=== PATIENT | male | born 1995 | race Two or more races ===

== ENCOUNTER 2020-07-13 17:03 | Outpatient (REF) | payer OTHER, SELFPAY | END 2020-07-13 17:04 | disposition home or self-care (01) | LOC: HO.LAB 17:03 | PROVIDERS: Visit Provider Internal Medicine | DX: Z20.828 Contact with and (suspected) exposure to other viral communicable diseases (principal) | CPT/HCPCS: 87635 ==

== ENCOUNTER 2020-12-25 17:55 | Emergency (ER) | payer SELFPAY ==
--- NOTE | ~2020-12-25 | XR_ITS ---
EXAMINATION: Left foot series. Left ankle series. CLINICAL INFORMATION: Inversion injury bruising COMPARISON: None TECHNIQUE: 3 views of the left foot. Additional 2 views of the left ankle FINDINGS: Left ankle: The bones joints and soft tissues are normal without fracture. Left foot: The bones joints soft tissues are normal. XR/XR foot LT 2V IMPRESSION: Normal x-ray series of the left ankle and foot
--- NOTE | ~2020-12-25 | XR_ITS ---
EXAMINATION: Left foot series. Left ankle series. CLINICAL INFORMATION: Inversion injury bruising COMPARISON: None TECHNIQUE: 3 views of the left foot. Additional 2 views of the left ankle FINDINGS: Left ankle: The bones joints and soft tissues are normal without fracture. Left foot: The bones joints soft tissues are normal. XR/XR ankle LT min 3V IMPRESSION: Normal x-ray series of the left ankle and foot
[2020-12-25 18:11] VITALS: BP 142/81; PULSE 76; RESP 18; TEMP 37; O2SAT 98; BMI 23.1
--- NOTE | 2020-12-25 18:34 | ED.LOWEXIN ---
HPI - Extremity Injury (Lower) General Chief Complaint: Extremity Injury, Lower Stated Complaint: knee injuey Source: patient Mode of arrival: ambulatory Limitations: no limitations History of Present Illness HPI Narrative: 25-year-old male with no significant past medical history presents with left foot and ankle pain. States that he rolled his ankle while taking out the garbage last night, thought that if he rested, iced and elevated his foot that the pain would resolve. He presents today with bruising across his foot, inability to flex and extend, and is having difficult time ambulating. He does not describe any other injury, denies fevers, chills, prodromal events prior to ankle injury, or any other concerning symptoms MD complaint: ankle injury and foot injury Onset (ago): day(s) (Yesterday) Type of Injury: inversion Place: home Severity: moderate Severity scale (1-10): 6 Relieving factors: cold therapy and immobilization Exacerbating factors: weight bearing, movement and palpation Associated symptoms: snap/pop sensation and able to partially bear weight Other symptoms: none Treatments prior to arrival: cold therapy and NSAIDS Related Data Previous Rx's Medication Instructions Recorded ibuprofen 600 mg PO Q6H PRN #60 tab 12/25/20 Allergies Allergy/AdvReac Type Severity Reaction Status Date / Time diphenhydramine Allergy Unknown UNKNOWN Unverified 06/02/20 17:47 [From [facility]] Review of Systems Review of Systems: Constitutional: No Fever, No Chills ENT/Mouth: No Ear Pain, No Hoarseness, No sore throat Eyes: No Eye Pain, No Swelling, No Redness, No Foreign Body Cardiovascular: No Chest Pain, No SOB Respiratory: No Cough, No Dyspnea Gastrointestinal: No Nausea, No Vomiting, No Diarrhea, No abdominal Pain Genitourinary: No Dysuria, No Hematuria Musculoskeletal: positive left ankle pain, No Myalgias, No Joint Swelling Skin: No Skin lacerations, No rash Neuro: No Weakness, No Numbness, No Paresthesias, No Loss of Consciousness, No Dizziness, No Headache Psych: No Anxiety/Panic, No Depression Heme/Lymph: no easy bruising, no Lymphadenopathy Endocrine: No Polyuria, No Polydipsia Yes all other systems are reviewed and are negative [facility] Past Medical History Attestation statement: The following information was validated with the patient. Source: old records reviewed Medical History No active medical problems Social History Social History Use of substances other than those prescribed or required for medical reasons: No Advance Directives: No Advance Directives Information Provided: Yes Physical Exam Vital Signs: Vital Signs: Last Vital Signs Temp 98.6 F 12/25/20 18:11 Pulse 76 12/25/20 18:11 Resp 18 12/25/20 18:11 BP 142/81 H 12/25/20 18:11 Pulse Ox 98 12/25/20 18:11 Body Mass Index 23.1 Appearance: Alert. Oriented X3. No acute distress. Eyes: Pupils equal, round and reactive to light. ENT: Pharynx normal. Neck: Normal inspection. Neck supple. CVS: Normal heart rate and rhythm. Pulses normal. Respiratory: No respiratory distress. Breath sounds normal. Abdomen: Soft and nontender. Skin: Skin warm and dry. Normal skin color. Normal skin turgor. Extremities: Left lower extremity, decreased range of motion to the ankle, decreased flexion, extension, unable to invert kapil, full range of motion to the toes, brisk capillary refill and pulses equal bilaterally. Significant bruising noted to the medial and lateral malleolar processes. Tender to palpation just below the processes bilaterally. Neuro: No motor deficit. No sensory deficit. Course Course Course Narrative: 25-year-old male presents with left ankle injury, bruising, and inability to bear weight fully. Plan of care is for x-ray. X-rays negative for fracture. Injuries and physical of presentation highly suspicious for sprain. Will place patient in an air splint, provide script for Motrin, and give crutches. Patient verbalized understanding of and agrees to plan of care discharge home. MDM - Extremity Injury (Lower) Differential Diagnosis Differential diagnosis: Likely ankle sprain and strain and ankle fracture Medical Records Attestation: I reviewed the patient's medical records. Imaging Data Left foot and ankle x-ray: Attestation: I personally reviewed and interpreted this imaging study as follows: Radiologist's impression: EXAMINATION: Left foot series. Left ankle series. CLINICAL INFORMATION: Inversion injury bruising COMPARISON: None TECHNIQUE: 3 views of the left foot. Additional 2 views of the left ankle FINDINGS: Left ankle: The bones joints and soft tissues are normal without fracture. Left foot: The bones joints soft tissues are normal. XR/XR ankle LT min 3V IMPRESSION: Normal x-ray series of the left ankle and foot Discharge Plan Discharge Clinical Impression: Ankle sprain and strain Patient Disposition: Home, Self-Care Instructions: Ankle Sprain (ED) Additional Instructions: You were evaluated for left ankle injury. X-rays are negative for fracture. Your physical exam is positive for ankle sprain. Please use the Aircast as needed. Use crutches as needed. Follow-up with primary care physician as needed. If pain persists over a week then follow-up with orthopedics. I provided phone number for you. Use Tylenol and Motrin as needed for pain management. I prescribed Motrin 600 mg. Thank you for choosing this emergency department for evaluation. Please follow-up with primary care physician as needed. Return to the emergency department for any new, concerning, or worsening symptoms. Prescriptions: New ibuprofen 600 mg tablet 600 mg PO Q6H PRN (Reason: pain) Qty: 60 RF: 0 Stand Alone Forms: Work/School Release Interventions: ED Discharge Assessment Last Done: 12/25/20 19:40 Discharge Date/Time: 12/25/20 19:44
== END 2020-12-25 19:44 | disposition home or self-care (01) ==
PROVIDERS: Emergency Provider Emergency Medicine
DX: S96.912A Strain of unspecified muscle and tendon at ankle and foot level, left foot, initial encounter (principal); S93.402A Sprain of unspecified ligament of left ankle, initial encounter; X50.1XXA Overexertion from prolonged static or awkward postures, initial encounter; Y93.E9 Activity, other interior property and clothing maintenance; Y92.014 Private driveway to single-family (private) house as the place of occurrence of the external cause; Y99.9 Unspecified external cause status
CPT/HCPCS: 73610; 73620; 99283; 99284

== ENCOUNTER 2021-05-03 23:16 | Emergency (ER) | payer SELFPAY ==
[2021-05-04 00:30] VITALS: BP 136/93; PULSE 59; RESP 18; TEMP 36.8; O2SAT 100; BMI 22.8
--- NOTE | 2021-05-04 00:34 | ED.GENADULT ---
HPI - General Adult General Chief complaint: General Medical Stated complaint: swollen fing Source: patient Mode of arrival: ambulatory Limitations: no limitations History of Present Illness HPI narrative: 25-year-old male presents with cellulitis to the left 4th dorsal aspect of the finger radiating down to his metacarpal joint. States that he feels that he was bitten by a spider earlier today. He does not report any fevers or chills, and does have some pain on range of motion. Onset (ago): day(s) (One) Location: left and upper extremity Radiation: non-radiation Severity: mild Severity scale (1-10): 4 Quality: burning and aching Pain Consistency: constant Exacerbating factors: movement Associated symptoms: denies other symptoms Treatments prior to arrival: heat therapy Related Data Previous Rx's Medication Instructions Recorded ibuprofen 600 mg tablet 600 mg PO Q6H PRN #60 tab 12/25/20 cephalexin 500 mg capsule 500 mg PO Q12H 7 Days #14 cap 05/04/21 doxycycline monohydrate 100 mg 100 mg PO BID 10 Days #20 cap 05/04/21 capsule Allergies Allergy/AdvReac Type Severity Reaction Status Date / Time diphenhydramine Allergy Unknown UNKNOWN Unverified 06/02/20 17:47 [From [facility]] Review of Systems Review of Systems: Constitutional: No Fever, No Chills ENT/Mouth: No Ear Pain, No Hoarseness, No sore throat Eyes: No Eye Pain, No Swelling, No Redness, No Foreign Body Cardiovascular: No Chest Pain, No SOB Respiratory: No Cough, No Dyspnea Gastrointestinal: No Nausea, No Vomiting, No Diarrhea, No abdominal Pain Genitourinary: No Dysuria, No Hematuria Musculoskeletal: positive left 4th finger pain, No Myalgias, No Joint Swelling Skin: Positive erythema to the left 4th finger, No Skin lacerations, No rash Neuro: No Weakness, No Numbness, No Paresthesias, No Loss of Consciousness, No Dizziness, No Headache Psych: No Anxiety/Panic, No Depression Heme/Lymph: no easy bruising, no Lymphadenopathy Endocrine: No Polyuria, No Polydipsia Yes all other systems are reviewed and are negative [facility] Past Medical History Attestation statement: The following information was validated with the patient. Source: old records reviewed Medical History No active medical problems Social History Social History Advance Directives: No Advance Directives Information Provided: Yes Physical Exam Vital Signs: Vital Signs: Last Vital Signs Temp 98.3 F 05/04/21 00:30 Pulse 59 05/04/21 00:30 Resp 18 05/04/21 00:30 BP 136/93 H 05/04/21 00:30 Pulse Ox 100 05/04/21 00:30 Body Mass Index 22.8 Appearance: Alert. Oriented X3. No acute distress. Eyes: Pupils equal, round and reactive to light. ENT: Pharynx normal. Neck: Normal inspection. Neck supple. CVS: Normal heart rate and rhythm. Pulses normal. Respiratory: No respiratory distress. Breath sounds normal. Abdomen: Soft and nontender. Skin: Skin warm and dry. Erythema consistent with cellulitis noted to the 4th left finger dorsal aspect between the PIP and MIP, small area of induration without fluctuance Extremities: No lower extremity edema. Moves all extremities against resistance. Brisk capillary refill to all digits on upper extremities. Neuro: No motor deficit. No sensory deficit. Cranial nerves 2-12 intact. Course Course Course Narrative: 25-year-old male presents with cellulitis to the 4th left finger. Will treat with doxy and Keflex as he suspects that this is a spider bite. He is asking for this to be incised and drained however he does not have any areas of fluctuance and the area of induration is approximately 0.5 cm. He was encouraged to continue to use warm compresses and to use antibiotics. Patient did understand rationale for not incising and draining this small wound in area of cellulitis. Patient verbalized understanding of and agrees plan of care discharge home. Medical Decision Making Differential Diagnosis Differential Diagnosis: Cellulitis Medical Records Medical records reviewed: Yes I reviewed the patient's medical records. Discharge Plan Discharge Clinical Impression: Cellulitis Patient Disposition: Home, Self-Care Instructions: Cellulitis (ED), Warm Compress or Soak (ED) Additional Instructions: You were evaluated for cellulitis to the left 4th finger. Please take doxycycline and Keflex as directed. These medications or antibiotics. Use a warm compress to help with swelling. Use Tylenol and Motrin as needed for pain management. Thank you for choosing this emergency department for evaluation. Please follow-up with primary care physician as needed. Return to the emergency department for any new, concerning, or worsening symptoms. Prescriptions: New doxycycline monohydrate 100 mg capsule 100 mg PO BID 10 Days Qty: 20 RF: 0 cephalexin 500 mg capsule 500 mg PO Q12H 7 Days Qty: 14 RF: 0 No Action ibuprofen 600 mg tablet 600 mg PO Q6H PRN (Reason: pain) Qty: 60 RF: 0 Interventions: ED Discharge Assessment Last Done: 05/04/21 01:01 Discharge Date/Time: 05/04/21 01:03
[2021-05-04] MEDS: cephALEXin 500 MG CAPSULE PO (00:52)
== END 2021-05-04 01:03 | disposition home or self-care (01) ==
PROVIDERS: Emergency Provider Emergency Medicine Emergency Medical Services
DX: L03.012 Cellulitis of left finger (principal)
CPT/HCPCS: 99283

== ENCOUNTER 2022-03-22 10:39 | Emergency (ER) | payer SELFPAY ==
[2022-03-22 11:16] VITALS: BP 130/90; PULSE 65; RESP 16; TEMP 35.9; O2SAT 99; BMI 22.2
[2022-03-22] MEDS: Lidocaine HCl 1 % MPF 5 ML VIAL INFILTRATI (12:41)
--- NOTE | 2022-03-22 12:46 | PC.NURSE ---
This RN bedside with MD to lidocaine administration and draining of abbess
--- NOTE | 2022-03-22 12:58 | ED_ITS ---
HPI - Dental/Oral General Chief complaint: Dental/Oral Stated complaint: infected tooth, R swollen jaw Time Seen by Provider: 03/22/22 12:12 Source: patient Mode of arrival: ambulatory Limitations: no limitations History of Present Illness HPI Narrative: 26-year-old male with right lower dental pain and an abscess in his mouth for the last 3 days. No fevers. Patient does not have a dentist. States that he has a large lump in his mouth, and he drained it yesterday, and a lot of pus came out. He is able to eat and drink, he can open his mouth all the way, no abdominal pain, no vomiting, no diarrhea, no nausea, no chest pain, no shortness of breath. MD Complaint: tooth pain Location: Tooth # (30) Teeth map: 1. decayed tooth 2. indurated area Onset (ago): day(s) (3) Duration: constant Severity: moderate Severity scale (1-10): 6 Relieving factors: nothing Exacerbating factors: chewing Context: history of dental caries and poor dental care Associated symptoms: gum swelling Treatment prior to arrival: none Related Data Previous Rx's Medication Instructions Recorded ibuprofen 600 mg tablet 600 mg PO Q6H PRN pain #60 tabs 12/25/20 cephalexin 500 mg capsule 500 mg PO Q12H 7 days #14 caps 05/04/21 doxycycline monohydrate 100 mg 100 mg PO BID 10 days #20 caps 05/04/21 capsule clindamycin HCl 300 mg capsule 300 mg PO Q6H 10 days #40 caps 03/22/22 ibuprofen 800 mg tablet 800 mg PO Q8H PRN pain #60 tabs 03/22/22 Allergies Allergy/AdvReac Type Severity Reaction Status Date / Time diphenhydramine Allergy Unknown UNKNOWN Unverified 06/02/20 17:47 [From [facility]] Review of Systems Constitutional: Constitutional: Denies body ache(s), Denies chills, Denies fatigue, Denies fever(s), Denies headache(s), Denies malaise and Denies weakness Eyes: Eyes: Denies diplopia ENT: Reports dental pain, Denies vertigo, Denies dizziness, Denies otalgia, Denies headache(s), Denies mouth pain, Denies post nasal drip, Denies sinus pain, Denies sinus pressure, Denies sore throat and Denies throat swelling Cardiovascular: Cardiovascular: Denies chest pain, Denies syncope, Denies leg edema, Denies lightheadedness, Denies Loss of Consciousness, Denies palpitations and Denies dyspnea Respiratory: Respiratory: Denies chest congestion, Denies cough and Denies dyspnea Gastrointestinal: Gastrointestinal: Denies abdominal pain, Denies hematochezia, Denies constipation, Denies diarrhea, Denies nausea and Denies vomiting Musculoskeletal: Musculoskeletal: Reports no additional musculoskeletal co mplaints Neurologic: Denies confusion, Denies vertigo, Denies dizziness, Denies syncope, Denies headache(s) and Denies weakness Psychiatric: Psychiatric: Denies anxiety, Denies confusion and Denies depression Endocrine: Endocrine: Denies fatigue and Denies palpitations Allergic/Immunologic: Allergic/Immunologic: Denies throat swelling PMFSH Past Medical History Medical History No active medical problems Social History Social History Advance Directives: No Advance Directives Information Provided: No Physical Exam Vital Signs: Vital Signs: Last Vital Signs Temp 96.7 F L 03/22/22 11:16 Pulse 65 03/22/22 11:16 Resp 16 03/22/22 11:16 BP 130/90 H 03/22/22 11:16 Pulse Ox 99 03/22/22 11:16 O2 Del Method 03/22/22 11:16 BMI result Body Mass Index 22.2 Const: General: No confusion Nutritional Appearance: well nourished Orientation/consciousness: No confusion Limitations: no limitations HEENT: Head: Yes normal to inspection, Yes normocephalic and Yes atraumatic Ears: hearing grossly normal bilaterally, external ears normal, TM's normal bilaterally and EAC's normal General nose exam: Normal external nose present Face and sinus: Yes sinuses nontender and Yes other (Mild swelling right jaw) Mouth: tongue normal, moist mucous membranes, no drooling, malodorous breath, no muffled voice and no trismus Teeth and gingiva: gingiva abnormal (abscess) with purulent discharge and poor dentition Teeth image: 1. decayed tooth 2. associated gingival abscess draining purulence Throat: Yes posterior oropharynx normal Eyes: Conjunctivae: conjunctivae normal Pupils: Equal, round and reactive pupils present EOM: EOMs intact bilaterally Neck: Neck: Yes full ROM, Yes no lymphadenopathy and Yes supple Resp: Effort & Inspection: normal respiratory effort and able to speak in complete sentences Auscultation: clear to auscultation bilaterally, no crackles, no rales, no rhonchi and no wheezes Cardio: Rate: regular rate Rhythm: regular rhythm Heart sounds: S1 n ormal heart sound present and S2 normal heart sound present GI: Inspection: Yes normal to inspection Palpation (GI): Soft to palpation, nontender, no guarding and not rigid Percussion: Yes normal to percussion Auscultation: normal bowel sounds Skin: General skin exam: no rashes or lesions noted Neuro: General: No confusion Cranial nerves: Yes Equal, round and reactive pupils present Extrem: General: Yes normal to inspection and Yes full ROM Psych: Appearance: grossly normal Affect: normal affect Attitude: cooperative Thought process: Normal thought process present Course Course Course Narrative: 26-year-old male with 3 days of dental pain in his right lower bottom jaw, with an associated abscess. Patient has not had fevers, he does not have a dentist. States that he had a big pocket of pus next to his right lower molar, and he drained the pus himself yesterday and got a lot of purulence out. On exam, patient has stable vitals, is afebrile, has mild right-sided facial swelling, no trismus, no muffled or hot potato voice, anterior neck is normal, patient has swelling on the gingival side of tooth number 30 I did incision and drainage, however no purulence came out. Discussed the role of imaging with Dr Pisano, who did not think patient needed imaging at this time. Clindamycin, ibuprofen, gave patient a list of dentists, gave return precautions a fever, not being able to open mouth, voice changes, return to emergency room. All patient's questions were answered, patient is safe for discharge home Procedures Abscess I/D Site: oral Side (if applicable): right Sedation/analgesia: none Local Anesthetic: lidocaine 1% Amount of anesthesia used (mL): 3 Technique: incised with blade Amount of fluid expressed (mL): 0 Sent for culture/gram staining?: No Irrigation: No Packing used?: none Complications: bleeding Discharge Plan Discharge Clinical Impression: Dental caries, Dental abscess Patient Disposition: Home, Self-Care Instructions: Dental Abscess (ED), Abscess Incision and Drainage (DC) Additional Instructions: Please call 1 of the dentists who is on the list that we gave you for follow-up appointment. Please start the antibiotics today, take them every 6 hours, until they are done. Please take ibuprofen for pain. Please return to the emergency room if you have fevers, vomiting, if you have a hard time opening her mouth, if the facial swelling is worse, or for any other new or concerning symptoms Prescriptions: New clindamycin HCl 300 mg capsule 300 mg PO Q6H 10 Days Qty: 40 0RF ibuprofen 800 mg tablet 800 mg PO Q8H PRN (Reason: pain) Qty: 60 0RF No Action doxycycline monohydrate 100 mg capsule 100 mg PO BID 10 Days Qty: 20 0RF cephalexin 500 mg capsule 500 mg PO Q12H 7 Days Qty: 14 0RF ibuprofen 600 mg tablet 600 mg PO Q6H PRN (Reason: pain) Qty: 60 0RF
== END 2022-03-22 13:27 | disposition home or self-care (01) ==
PROVIDERS: Emergency Provider Emergency Medicine
DX: K02.9 Dental caries, unspecified (principal); K04.7 Periapical abscess without sinus
CPT/HCPCS: 41800; 99283

== ENCOUNTER 2022-05-04 06:02 | Emergency (ER) | payer SELFPAY ==
[2022-05-04 06:12] VITALS: BP 129/84; PULSE 52; RESP 18; TEMP 36.8; O2SAT 100
[2022-05-04 06:19] VITALS: BP 129/84; PULSE 50; RESP 16; TEMP 36.8; O2SAT 99; BMI 22.9
[2022-05-04 06:38] VITALS: BP 135/85; PULSE 54; RESP 18; O2SAT 97
[2022-05-04 06:58] LABS: Appearance Urine Hazy; Color Urine Yellow; Glucose Urine UA Negative (Negative); Leukocyte Esterase Urine Trace (Negative); Nitrite Urine Negative (Negative); Urine Blood Negative (Negative); Urine Ketones Negative (Negative); Urine Protein Trace mg/dL (Neg-Trace)
--- NOTE | 2022-05-04 06:58 | ED_ITS ---
HPI - General Adult General Chief complaint: General Medical Stated complaint: painful urination Time Seen by Provider: 05/04/22 06:56 Source: patient Mode of arrival: ambulatory History of Present Illness HPI narrative: 26-year-old male presents with burning on urination as well as penile discharge for approximately 7 days and reports some scrotal sensitivity but denies any fever, chills and is currently sexually active without protection. Related Data Previous Rx's Medication Instructions Recorded ibuprofen 600 mg tablet 600 mg PO Q6H PRN pain #60 tabs 12/25/20 cephalexin 500 mg capsule 500 mg PO Q12H 7 days #14 caps 05/04/21 doxycycline monohydrate 100 mg 100 mg PO BID 10 days #20 caps 05/04/21 capsule clindamycin HCl 300 mg capsule 300 mg PO Q6H 10 days #40 caps 03/22/22 ibuprofen 800 mg tablet 800 mg PO Q8H PRN pain #60 tabs 03/22/22 doxycycline hyclate 100 mg tablet 100 mg PO BID 7 days #14 tabs 05/04/22 Allergies Allergy/AdvReac Type Severity Reaction Status Date / Time diphenhydramine Allergy Unknown UNKNOWN Unverified 06/02/20 17:47 [From [facility]] Review of Systems Review of Systems: Pertinent positives and negatives as stated in HPI 10 point review of systems is otherwise negative. PMFSH Past Medical History Source: nursing notes reviewed Medical History No active medical problems Social History Social History Advance Directives: No Physical Exam ED Vital Signs: Vital Signs - 24 hr 05/04/22 06:12 05/04/22 06:19 05/04/22 06:38 Temperature 98.2 F 98.2 F Pulse Rate 52 50 54 Respiratory Rate 18 16 18 Blood Pressure 129/84 129/84 135/85 Pulse Oximetry 100 99 97 Oxygen Delivery Method Room Air Room Air Room Air BMI result Body Mass Index 22.9 VITAL SIGNS: Reviewed. GENERAL: Well developed, well nourished, in no acute distress. HEAD: Normocephalic/atraumatic EYES: PERRLA, EOMI EARS: Ext canals without abnormality OROPHARYNX: no oral lesions noted, posterior pharynx clear LUNGS: Normal breath sounds. No adventitious sounds or accessory muscle use. SpO2<100> CARDIOVASCULAR: Regular rate and rhythm without noted murmurs ABDOMEN: Soft, non-tender, non-distended with bowel sounds. NEUROLOGIC: Alert and oriented x 4. Course Course Course Narrative: 26-year-old male with history and clinical presentation most consistent with STI, counseled patient regarding sexual activity over the next week as well as current treatment. Also counseled patient on following up his STI screening results and he is otherwise discharged home in stable condition after receiving empiric treatment for STI. Medical Decision Making Lab Data Labs: Lab Results 05/04/22 Range/Units 06:47 Urine Color Yellow Urine Appearance Hazy Urine pH 6.0 (5.0-8.0) Ur Specific [place] 1.020 (1.005-1.025) Urine Protein Trace (Neg-Trace) mg/dL Urine Glucose (UA) Negative (Negative) mg/dL Urine Ketones Negative (Negative) mg/dL Urine Blood Negative (Negative) Urine Nitrite Negative (Negative) Ur Leukocyte Esterase Trace H (Negative) Urine RBC 0-2 (0-2) /HPF Urine WBC 21-50 H (0-5) /HPF Ur Squamous Epith Cells 0-2 (0-2) /HPF Urine Bacteria Trace (None Seen) Hyaline Casts 0-2 (0-2) /LPF Discharge Plan Discharge Clinical Impression: Urethritis, Epididymitis Patient Disposition: Home, Self-Care Instructions: Epididymitis (ED), Urinary Tract Infection in Men (ED) Additional Instructions: 1. Recommend [id number] Tylenol/ibuprofen as needed for pain control. Drink plenty of water. 2. Complete the entire course of antibiotics as prescribed unless your results are negative for STI. 3. Do not engage in sexual activity for the next week and inform all sexual partners of your results should they be positive. Return to the ER for worsening symptoms. Prescriptions: New doxycycline hyclate 100 mg tablet 100 mg PO BID 7 Days Qty: 14 0RF No Action doxycycline monohydrate 100 mg capsule 100 mg PO BID 10 Days Qty: 20 0RF cephalexin 500 mg capsule 500 mg PO Q12H 7 Days Qty: 14 0RF ibuprofen 600 mg tablet 600 mg PO Q6H PRN (Reason: pain) Qty: 60 0RF clindamycin HCl 300 mg capsule 300 mg PO Q6H 10 Days Qty: 40 0RF ibuprofen 800 mg tablet 800 mg PO Q8H PRN (Reason: pain) Qty: 60 0RF
[2022-05-04 07:08] LABS: UACC Culture Trigger YES; WBC Urine 21-50 /HPF (0-5)
[2022-05-04 07:09] LABS: Bacteria Urine Trace (None Seen); RBC Urine 0-2 /HPF (0-2)
[2022-05-04 07:10] LABS: Hyaline Casts Urine 0-2 /LPF (0-2); Squamous Epithelial Cell Urine 0-2 /HPF (0-2)
[2022-05-04] MEDS: cefTRIAXone sodium 500 MG, Lidocaine HCl 1 % MPF 1 ML IM (07:29)
[2022-05-04 08:59] LABS: CT PCR DETECTED (Not Detect.); NG PCR NOT DETECTED (Not Detect.)
== END 2022-05-04 07:33 | disposition home or self-care (01) ==
PROVIDERS: Emergency Provider Student in an Organized Health Care Education/Training Program
DX: N45.1 Epididymitis (principal); N34.2 Other urethritis; R30.0 Dysuria; R36.9 Urethral discharge, unspecified; Z79.899 Other long term (current) drug therapy
CPT/HCPCS: 81001; 81003; 87086; 87491; 87591; 96372; 99283; 99284; J0696

== ENCOUNTER 2022-07-03 21:07 | Emergency (ER) | payer OTHER, SELFPAY ==
[2022-07-03 22:06] VITALS: BP 145/91; PULSE 73; RESP 16; TEMP 37; O2SAT 98; BMI 22.1
[2022-07-03 22:34] LABS: Appearance Urine Clear; Color Urine Yellow; Glucose Urine UA Negative (Negative); Leukocyte Esterase Urine Negative (Negative); Nitrite Urine Negative (Negative); PH 6.5 (5.0-9.0); Specific Gravity - Urine 1.025 (1.005-1.025); Urine Blood Negative (Negative); Urine Ketones Trace mg/dL (Negative); Urine Protein Negative (Neg-Trace)
--- NOTE | 2022-07-04 00:18 | ED.MALEGU ---
HPI - Male Genitourinary General Chief complaint: Urogenital-Male Stated complaint: STD retest Time Seen by Provider: 07/04/22 00:14 Source: patient Mode of arrival: ambulatory Limitations: no limitations History of Present Illness HPI Narrative: 26-year-old male who presents with several days of difficulty urinating, dysuria, discomfort at the tip of his penis, lower abdominal discomfort. Patient tells me in April he had chlamydia. He did take the antibiotics but continued to have unprotected sex with his girlfriend. He found out this week she tested positive for chlamydia. Then he started having symptoms prompting his ER visit today. Denies fever, back pain, vomiting, testicular pain or swelling Related Data Previous Rx's Medication Instructions Recorded ibuprofen 600 mg tablet 600 mg PO Q6H PRN pain #60 tabs 12/25/20 cephalexin 500 mg capsule 500 mg PO Q12H 7 days #14 caps 05/04/21 doxycycline monohydrate 100 mg 100 mg PO BID 10 days #20 caps 05/04/21 capsule clindamycin HCl 300 mg capsule 300 mg PO Q6H 10 days #40 caps 03/22/22 ibuprofen 800 mg tablet 800 mg PO Q8H PRN pain #60 tabs 03/22/22 doxycycline hyclate 100 mg tablet 100 mg PO BID 7 days #14 tabs 05/04/22 Allergies Allergy/AdvReac Type Severity Reaction Status Date / Time diphenhydramine Allergy Unknown UNKNOWN Unverified 06/02/20 17:47 [From HANNAH] Review of Systems Review of Systems: Yes all other systems are reviewed and are negative Constitutional: Constitutional: Reports no additional constitutional complaints, Denies body ache(s), Denies chills, Denies fever(s), Denies headache(s) and Denies weakness Eyes: Eyes: Reports no additional eye complaints and Denies change in vision ENT: Reports system reviewed and no additional complaints, except as documented, Denies dizziness, Denies headache(s), Denies nasal congestion, Denies nasal discharge and Denies neck pain Cardiovascular: Cardiovascular: Reports no additional cardiovascular complaints, Denies chest pain, Denies leg edema and Denies dyspnea Respiratory: Respiratory: Reports no additional respiratory complaints, Denies cough and Denies dyspnea Gastrointestinal: Gastrointestinal: Reports no additional gastrointestinal complaints, Reports abdominal pain, Denies diarrhea, Denies nausea and Denies vomiting Genitourinary: Genitourinary: Denies hematuria, Reports difficulty urinating, Reports dysuria, Denies flank pain, Denies penile discharge, Denies testicular mass, Denies testicular pain and Denies urinary incontinence Musculoskeletal: Musculoskeletal: Reports no additional musculoskeletal complaints, Denies back pain, Denies arthralgias, Denies joint swelling, Denies neck pain, Denies numbness and Denies tingling Integumentary/Breasts: Skin/Breast: Reports system reviewed and no additional complaints, except as docu and Denies rash Neurologic: Reports system reviewed and no additional complaints, except as documented, Denies Abnormal speech present, Denies dizziness, Denies headache(s), Denies numbness, Denies tingling and Denies weakness PMFSH Past Medical History Attestation statement: The following information was validated with the patient. Source: old records reviewed and nursing notes reviewed Medical History No active medical problems Social History Social History Advance Directives: No Advance Directives Information Provided: Yes Physical Exam Vital Signs: Vital Signs: Last Vital Signs Temp 98.6 F 07/03/22 22:06 Pulse 73 07/03/22 22:06 Resp 16 07/03/22 22:06 BP 145/91 H 07/03/22 22:06 Pulse Ox 98 07/03/22 22:06 O2 Del Method 07/03/22 22:06 BMI result Body Mass Index 22.1 Const: General: cooperative, healthy appearing, comfortable and no acute distress Orientation/consciousness: patient oriented x3 Limitations: no limitations HEENT: Head: Yes normal to inspection Ears: hearing grossly normal bilaterally General nose exam: Normal external nose present Face and sinus: Yes normal facial exam Mouth: Normal oral and palatal mucosa present Throat: Yes posterior oropharynx normal Eyes: General: appearance normal, both eyes and all related structures Pupils: Equal, round and reactive pupils present Neck: Neck: Yes normal visual inspection Chest: Chest palpation & inspection: normal inspection of the chest Resp: Effort & Inspection: normal respiratory effort Auscultation: clear to auscultation bilaterally Cardio: Rate: regular rate Rhythm: regular rhythm Peripheral pulses: Peripheral pulses 2+ throughout GI: Inspection: Yes normal to inspection Palpation (GI): Soft to palpation and nontender Auscultation: normal bowel sounds : Other: Deferred exam Back/Spine/Pelvis: Thoracic/Lumbar Spine: thoracic and lumbar spine normal to inspection Skin: General skin exam: no rashes or lesions noted Neuro: General: patient oriented x3, no focal motor deficits and normal sensation to monofilament Cranial nerves: Yes Equal, round and reactive pupils present Cognition (Neuro): normal cognition Speech: No Abnormal speech present Gait exam (Neuro): Normal gait present Motor exam (neuro): 5/5 motor strength present throughout Extrem: General: Yes normal to inspection and Yes no pedal edema MDM - Male Genitourinary MDM Narrative Medical decision making narrative: 26-year-old male here with symptoms of difficulty urinating, dysuria, lower abdominal discomfort for several days after finding out his girlfriend is positive for chlamydia. UA shows no signs of UTI. Testing for gonorrhea and chlamydia were sent. Patient will be treated prophylactically with ceftriaxone 500 mg IM and sent home with doxycycline Reviewed worrisome signs and symptoms of when to return to the emergency room. Comfortable plan for discharge home Differential Diagnosis Differential diagnosis: Likely urinary tract infection and urethritis Medical Records Attestation: I reviewed the patient's medical records. Lab Data Attestation: I reviewed the patient's lab results. Labs: Lab Results 07/03/22 Range/Units 22:27 Urine Color Yellow Urine Appearance Clear Urine pH 6.5 (5.0-9.0) Ur Specific [place] 1.025 (1.005-1.025) Urine Protein Negative (Neg-Trace) mg/dL Urine Glucose (UA) Negative (Negative) mg/dL Urine Ketones Trace (Negative) mg/dL Urine Blood Negative (Negative) Urine Nitrite Negative (Negative) Ur Leukocyte Esterase Negative (Negative) Discharge Plan Discharge Clinical Impression: Concern about STD in male without diagnosis Patient Disposition: Home, Self-Care Instructions: Sexually Transmitted Diseases (ED) Additional Instructions: We will call you if here test are positive. Avoid unprotected sex for 7 days Prescriptions: No Action doxycycline monohydrate 100 mg capsule 100 mg PO BID 10 Days Qty: 20 0RF cephalexin 500 mg capsule 500 mg PO Q12H 7 Days Qty: 14 0RF ibuprofen 600 mg tablet 600 mg PO Q6H PRN (Reason: pain) Qty: 60 0RF clindamycin HCl 300 mg capsule 300 mg PO Q6H 10 Days Qty: 40 0RF ibuprofen 800 mg tablet 800 mg PO Q8H PRN (Reason: pain) Qty: 60 0RF doxycycline hyclate 100 mg tablet 100 mg PO BID 7 Days Qty: 14 0RF Referrals: Physician,None [Primary Care Provider] -
[2022-07-04] MEDS: cefTRIAXone sodium 500 MG, Lidocaine HCl 1 % MPF 1 ML IM (00:35)
[2022-07-04 05:30] LABS: CT PCR NOT DETECTED (Not Detect.); NG PCR NOT DETECTED (Not Detect.)
== END 2022-07-04 00:41 | disposition home or self-care (01) ==
PROVIDERS: Emergency Provider Internal Medicine
DX: R10.30 Lower abdominal pain, unspecified (principal); Z20.2 Contact with and (suspected) exposure to infections with a predominantly sexual mode of transmission
CPT/HCPCS: 81003; 87491; 87591; 96372; 99282; 99284; J0696

== ENCOUNTER 2022-08-21 12:18 | Emergency (ER) | payer SELFPAY ==
[2022-08-21 12:31] VITALS: BP 143/92; PULSE 69; RESP 14; TEMP 36.1; O2SAT 99; BMI 22.7
--- NOTE | 2022-08-21 12:31 | ED_ITS ---
HPI - General Adult General Chief complaint: Urogenital-Male <Yoli Nicholson MD - Last Filed: 08/21/22 12:35> Stated complaint: STD check <Yoli Nicholson MD - Last Filed: 08/21/22 12:35> Time Seen by Provider: 08/21/22 15:22 <Yoli Nicholson MD - Last Filed: 08/21/22 12:35> Source: patient <DUC Craig - Last Filed: 08/21/22 15:46> Mode of arrival: ambulatory <DUC Craig - Last Filed: 08/21/22 15:46> History of Present Illness HPI narrative: 26-year-old male with a past medical history of STIs presenting to the ED complaining of continued penile irritation/erythema. Reports girlfriend tested positive for chlamydia a few months ago, patient states he presented to the ED for testing and was negative, however reports continued symptoms. Also reports urinary hesitancy. Denies fever, abdominal pain, flank pain, dysuria, hematuria, penile discharge, penile lesions/ulcers <DUC Craig - Last Filed: 08/21/22 15:46> Onset (ago): month(s) <DUC Craig - Last Filed: 08/21/22 15:46> Related Data Home medications: Previous Rx's Medication Instructions Recorded ibuprofen 600 mg tablet 600 mg PO Q6H PRN pain #60 tabs 12/25/20 cephalexin 500 mg capsule 500 mg PO Q12H 7 days #14 caps 05/04/21 doxycycline monohydrate 100 mg 100 mg PO BID 10 days #20 caps 05/04/21 capsule clindamycin HCl 300 mg capsule 300 mg PO Q6H 10 days #40 caps 03/22/22 ibuprofen 800 mg tablet 800 mg PO Q8H PRN pain #60 tabs 03/22/22 doxycycline hyclate 100 mg tablet 100 mg PO BID 7 days #14 tabs 05/04/22 <Yloi Nicholson MD - Last Filed: 08/21/22 12:35> Allergies/adverse reactions: Allergies Allergy/AdvReac Type Severity Reaction Status Date / Time diphenhydramine Allergy Unknown UNKNOWN Unverified 06/02/20 17:47 [From BENADRYL] <Yoli Nicholson MD - Last Filed: 08/21/22 12:35> Review of Systems Review of Systems: Constitutional: No Fever, No Chills, No Fatigue, No Malaise ENT/Mouth: No Ear Pain, No sore throat, No Rhinorrhea, No Swallowing Difficulty Eyes: No Eye Pain, No Swelling, No Redness, No Vision Changes Cardiovascular: No Chest Pain, No SOB, No Palpitations Respiratory: No Cough, No Sputum Gastrointestinal: No Nausea, No Vomiting, No Diarrhea, No Abdominal pain Genitourinary: No irregular bleeding, No Dysuria, No Urinary Frequency, No Hematuria, No Urinary Incontinence/retention, No Urgency, No Flank Pain, No Urinary Flow Changes, + Hesitancy, +penile irritation Musculoskeletal: No joint pain, No Myalgias, No Joint Swelling Skin: No Skin Lesions, No rash Neuro: No Weakness, No Headache <DUC Craig - Last Filed: 08/21/22 15:46> Yes all other systems are reviewed and are negative <DUC Craig - Last Filed: 08/21/22 15:46> Constitutional: Constitutional: Reports as per HPI <DUC Craig - Last Filed: 08/21/22 15:46> [facility] Past Medical History Attestation statement: The following information was validated with the patient. <DUC Craig - Last Filed: 08/21/22 15:46> Medical History: Medical History No active medical problems <Yoli Nicholson MD - Last Filed: 08/21/22 12:35> Social History Social History: Social History Advance Directives: No Advance Directives Information Provided: No <Yoli Nicholson MD - Last Filed: 08/21/22 12:35> Physical Exam ED Vital Signs: Vital Signs - 24 hr 08/21/22 12:31 Temperature 97 F Pulse Rate 69 Respiratory Rate 14 Blood Pressure 143/92 H Pulse Oximetry 99 Oxygen Delivery Method Room Air BMI result Body Mass Index 22.7 <Yoli Nicholson MD - Last Filed: 08/21/22 12:35> Vital Signs - 24 hr 08/21/22 12:31 Temperature 97 F Pulse Rate 69 Respiratory Rate 14 Blood Pressure 143/92 H Pulse Oximetry 99 Oxygen Delivery Method Room Air BMI result Body Mass Index 22.7 <DUC Craig - Last Filed: 08/21/22 15:46> Const General: cooperative, healthy appearing, comfortable and no acute distress <DUC Craig - Last Filed: 08/21/22 15:46> Orientation/consciousness: patient oriented x3 <DUC Craig - Last Filed: 08/21/22 15:46> Limitations: no limitations <DUC Craig - Last Filed: 08/21/22 15:46> HENMT Head: Yes normal to inspection and Yes atraumatic <DUC Craig - Last Filed: 08/21/22 15:46> Ears: hearing grossly normal bilaterally <DUC Craig - Last Filed: 08/21/22 15:46> General nose exam: Normal external nose present <DUC Craig - Last Filed: 08/21/22 15:46> Face and sinus: Yes normal facial exam <DUC Craig - Last Filed: 08/21/22 15:46> Eyes General: appearance normal, both eyes and all related structures <DUC Craig - Last Filed: 08/21/22 15:46> EOM: EOMs intact bilaterally <DUC Craig - Last Filed: 08/21/22 15:46> Neck Neck: Yes normal visual inspection and Yes no meningeal signs <DUC Craig - Last Filed: 08/21/22 15:46> Resp Effort & Inspection: normal respiratory effort, not labored and no respiratory distress <DUC Craig - Last Filed: 08/21/22 15:46> Cardio Rate: regular rate <DUC Craig - Last Filed: 08/21/22 15:46> Heart sounds: S1 normal heart sound present and S2 normal heart sound present <DUC Craig - Last Filed: 08/21/22 15:46> GI Inspection: Yes normal to inspection <DUC Craig - Last Filed: 08/21/22 15:46> Other: deferred <DUC Craig - Last Filed: 08/21/22 15:46> Skin Wounds: no wounds <DUC Craig - Last Filed: 08/21/22 15:46> Neuro General: patient oriented x3, gait normal, tone normal and no meningeal signs <DUC Craig Last Filed: 08/21/22 15:46> Gait exam (Neuro): Normal gait present <DUC Craig Last Filed: 08/21/22 15:46> Extrem General: Yes normal to inspection <DUC Craig Last Filed: 08/21/22 15:46> Course Course Course Narrative: 26M penis tip redness. unprotected sex. VS Reviewed GEN: NAD EARS: wnl THROAT: wnl LUNGS: CTAB CVS: RRR ABD: NT/ND <Yoli Nicholson MD - Last Filed: 08/21/22 12:35> 26M penis tip redness. unprotected sex. VS Reviewed GEN: NAD EARS: wnl THROAT: wnl LUNGS: CTAB CVS: RRR ABD: NT/ND -1535--gonorrhea/chlamydia negative. UA not infected > results discussed with patient. exam deferred, recommended patient follow- up with [facility] for further STI testing for id recommended the patient refrain from any sexual contact until he is fully evaluated/tested for other STI's <DUC Craig - Last Filed: 08/21/22 15:46> Medical Decision Making Medical Decision Making MDM Narrative: 26-year-old male with a past medical history of STIs presenting to the ED complaining of continued penile irritation/erythema. On exam vital signs stable, NAD, nontoxic appearing, patient deferred exam. CT NG and UA ordered in triage and both negative/unremarkable. Concern for other STIs vs ?Possible balanitis. Low suspicion for appendicitis/diverticulitis, testicular torsion, renal stone/pyelo Recommended patient follow-up with his PCP/go to [facility] for further eval <DUC Craig Last Filed: 08/21/22 15:46> Differential Diagnoses: Differential diagnosis Differential Diagnosis: The differential diagnosis associated with the patient?s presentation includes: as above <DUC Craig - Last Filed: 08/21/22 15:46> Non-ED record review: Review of External (Non-ED) Record External record reviewed:: Inpatient record, Office record, Outpatient record and Prior outpatient labs <DUC Craig - Last Filed: 08/21/22 15:46> Tests considered but not performed: Tests Considered But Not Performed (other sti testing however patient deferred exam) The following testing was considered but ultimately not selected after discussion with patient/family. <DUC Craig - Last Filed: 08/21/22 15:46> Prescription medication was considered but ultimately not given after discussion with patient/family. (e.g., pain medication, antiviral, antibiotic): Prescriptions considered but not given I considered prescription management with: Antiviral and Antibiotic <DUC Craig - Last Filed: 08/21/22 15:46> Discharge Plan Discharge Clinical Impression: Penile irritation <Yoli Nicholson MD - Last Filed: 08/21/22 12:35> Patient Disposition: Home, Self-Care <Yoli Nicholson MD - Last Filed: 08/21/22 12:35> Instructions: Sexually Transmitted Diseases (ED) <Yoli Nicholson MD - Last Filed: 08/21/22 12:35> Additional Instructions: You tested negative for gonorrhea and chlamydia today in the emergency department. Her urine is not infected. Please refrain from any sexual contact until you are fully tested for other STIs. We recommend you go to [facility] for further testing If her symptoms persist or worsen, you fever, your unable to urinate, abdominal pain please return to the ED <Yoli Nicholson MD - Last Filed: 08/21/22 12:35> Prescriptions: No Action doxycycline monohydrate 100 mg capsule 100 mg PO BID 10 Days Qty: 20 0RF cephalexin 500 mg capsule 500 mg PO Q12H 7 Days Qty: 14 0RF ibuprofen 600 mg tablet 600 mg PO Q6H PRN (Reason: pain) Qty: 60 0RF clindamycin HCl 300 mg capsule 300 mg PO Q6H 10 Days Qty: 40 0RF ibuprofen 800 mg tablet 800 mg PO Q8H PRN (Reason: pain) Qty: 60 0RF doxycycline hyclate 100 mg tablet 100 mg PO BID 7 Days Qty: 14 0RF <Yoli Nicholson MD - Last Filed: 08/21/22 12:35> Referrals: Physician,None [Primary Care Provider] - <Yoli Nicholson MD - Last Filed: 08/21/22 12:35> Discharge Date/Time: 08/21/22 15:42 <Yoli Nicholson MD - Last Filed: 08/21/22 12:35>
[2022-08-21 13:20] LABS: Appearance Urine Clear; Color Urine Yellow; Glucose Urine UA Negative (Negative); Leukocyte Esterase Urine Negative (Negative); Nitrite Urine Negative (Negative); PH 6.5 (5.0-9.0); Specific Gravity - Urine 1.025 (1.005-1.025); Urine Blood Negative (Negative); Urine Ketones Negative (Negative); Urine Protein Negative (Neg-Trace)
[2022-08-21 14:47] LABS: CT PCR NOT DETECTED (Not Detect.); NG PCR NOT DETECTED (Not Detect.)
== END 2022-08-21 15:42 | disposition home or self-care (01) ==
PROVIDERS: Student in an Organized Health Care Education/Training Program; Emergency Provider Emergency Medicine
DX: N48.89 Other specified disorders of penis (principal); Z20.2 Contact with and (suspected) exposure to infections with a predominantly sexual mode of transmission; Z79.899 Other long term (current) drug therapy
CPT/HCPCS: 81003; 87491; 87591; 99282; 99283

== ENCOUNTER 2023-03-05 09:08 | Emergency (ER) | payer SELFPAY ==
[2023-03-05 09:35] VITALS: BP 145/97; PULSE 65; RESP 18; TEMP 36.5; O2SAT 100; BMI 22.6
--- NOTE | 2023-03-05 10:52 | ED_ITS ---
HPI - General Adult General Chief complaint: Back Pain/Injury Stated complaint: muscle spasm in back and neck Time Seen by Provider: 03/05/23 09:41 Source: patient and RN notes reviewed Mode of arrival: ambulatory Limitations: no limitations History of Present Illness HPI narrative: This is a 27-year-old male presenting to the emergency department for evaluation of left-sided neck pain x4 days. Patient reports that he accidentally stepped wrong 4 days ago and has had pain and difficulty moving his neck since. Patient reports that he is trying gentle massage and range of motion without any relief. Denies history of similar symptoms in the past. Denies any fevers, chills, headaches, blurred vision, chest pain, shortness of breath, cough, abdominal pain, nausea, vomiting, or diarrhea. Denies any other complaints or concerns at this time. MD complaint: Neck spasm Onset (ago): day(s) Radiation: neck Severity: moderate Quality: aching Pain Consistency: constant Relieving factors: immobilization Exacerbating factors: none Associated symptoms: denies other symptoms Treatments prior to arrival: none Related Data Previous Rx's Medication Instructions Recorded ibuprofen 600 mg tablet 600 mg PO Q6H PRN pain #60 tabs 12/25/20 cephalexin 500 mg capsule 500 mg PO Q12H 7 days #14 caps 05/04/21 doxycycline monohydrate 100 mg 100 mg PO BID 10 days #20 caps 05/04/21 capsule clindamycin HCl 300 mg capsule 300 mg PO Q6H 10 days #40 caps 03/22/22 ibuprofen 800 mg tablet 800 mg PO Q8H PRN pain #60 tabs 03/22/22 doxycycline hyclate 100 mg tablet 100 mg PO BID 7 days #14 tabs 05/04/22 cyclobenzaprine 5 mg tablet 5 mg PO BEDTIME PRN muscle spasm 03/05/23 #5 tabs ibuprofen 600 mg tablet 600 mg PO Q6H PRN pain #20 tabs 03/05/23 prednisone 20 mg tablet 40 mg PO DAILY 5 days #10 tabs 03/05/23 Allergies Allergy/AdvReac Type Severity Reaction Status Date / Time diphenhydramine Allergy Unknown UNKNOWN Verified 03/05/23 09:38 [From BENCRISTHIANL] Review of Systems Review of Systems: Constitutional: No Weight loss, No Fever, No Chills ENT/Mouth: No Ear Pain, No Nasal Congestion, No Sinus Pain, No Hoarseness, No sore throat, No Rhinorrhea, No Swallowing Difficulty Cardiovascular: No Chest Pain, No SOB Respiratory: No Cough, No Sputum, No Wheezing Gastrointestinal: No Nausea, No Vomiting, No Diarrhea, No Constipation, No Abdominal pain Genitourinary: No Dysuria, No Urinary Frequency, No Hematuria, No Urinary Incontinence/retention, No Urgency, No Flank Pain Musculoskeletal: No joint pain, No Myalgias, No Joint Swelling Skin: No Skin Lesions, No rash Neuro: No Weakness, No Numbness, No Paresthesias [facility] Past Medical History Medical History No active medical problems Social History Social History Advance Directives: No Advance Directives Information Provided: No Physical Exam ED Vital Signs: Vital Signs - 24 hr 03/05/23 09:35 Temperature 97.7 F Pulse Rate 65 Respiratory Rate 18 Blood Pressure 145/97 H Pulse Oximetry 100 Oxygen Delivery Method Room Air BMI result Body Mass Index 22.6 General: Awake, alert, and oriented X3. No acute distress. HEENT: Normal inspection CVS: Normal heart rate and rhythm. Pulses normal. Neck: Cervical midline spine is nontender. Tenderness to palpation along the left cervical paraspinous muscles into the left trapezius with palpable spasm. No nuchal rigidity. Able to rotate neck and extended neck without difficulty, able to flex neck with some pain along the left trapezius. Respiratory: No respiratory distress Skin: Warm, dry, no rashes noted to exposed skin. Normal skin color. Normal skin turgor. Extremities: Normal inspection Neuro: Oriented X 3. No motor deficit. No sensory deficit. Medical Decision Making Medical Decision Making MDM Narrative: 27-year-old male presenting to the emergency department for evaluation of left- sided neck pain and muscle spasm x4 days. Blood pressure mildly elevated at 140 5/97, likely due to pain. Patient has no nuchal rigidity and good range of motion of the neck. Palpable muscle spasm along the left trapezius. Patient's symptoms consistent with left trapezial muscle spasm. Educated the importance of gentle motion and stretching, will treat with Toradol 30 mg IM, ibuprofen, prednisone, and muscle relaxers. Patient has no primary care physician who he can follow up with, given a list so he can call today to make an appointment for follow-up. Patient given red flag return precautions. Patient understands and agrees with plan. Patient stable for discharge. Differential Diagnosis Differential Diagnoses: The differential diagnosis associated with the presentation includes Left trapezial muscle spasm, muscle strain, torticollis, meningitis-unlikely Discharge Plan Discharge Clinical Impression: Trapezius muscle spasm Patient Disposition: Home, Self-Care Instructions: Muscle Spasm (ED) Additional Instructions: Your symptoms are consistent with a muscle spasm. Heat may help with your symptoms. Gentle stretching and massage may also help. Take prescribed medication as directed. If any new or worsening symptoms occur please return for re-evaluation. Have given you a list of primary care physicians, call today to make an appointment. Prescriptions: New cyclobenzaprine 5 mg tablet 5 mg PO BEDTIME PRN (Reason: muscle spasm) Qty: 5 0RF prednisone 20 mg tablet 40 mg PO DAILY 5 Days Qty: 10 0RF ibuprofen 600 mg tablet 600 mg PO Q6H PRN (Reason: pain) Qty: 20 0RF No Action doxycycline monohydrate 100 mg capsule 100 mg PO BID 10 Days Qty: 20 0RF cephalexin 500 mg capsule 500 mg PO Q12H 7 Days Qty: 14 0RF ibuprofen 600 mg tablet 600 mg PO Q6H PRN (Reason: pain) Qty: 60 0RF clindamycin HCl 300 mg capsule 300 mg PO Q6H 10 Days Qty: 40 0RF ibuprofen 800 mg tablet 800 mg PO Q8H PRN (Reason: pain) Qty: 60 0RF doxycycline hyclate 100 mg tablet 100 mg PO BID 7 Days Qty: 14 0RF
[2023-03-05] MEDS: Ketorolac Tromethamine 30 MG/ML VIAL IM (10:59)
== END 2023-03-05 11:07 | disposition home or self-care (01) ==
PROVIDERS: Emergency Provider Emergency Medicine
DX: M54.50 Low back pain, unspecified (principal); M54.2 Cervicalgia; M62.838 Other muscle spasm; Z79.899 Other long term (current) drug therapy
CPT/HCPCS: 96372; 99284; J1885

== ENCOUNTER 2023-04-19 01:57 | Emergency (ER) | payer SELFPAY ==
[2023-04-19 02:07] VITALS: BP 137/88; PULSE 89; RESP 20; TEMP 36.7; O2SAT 98; BMI 23.1
--- NOTE | 2023-04-19 02:54 | ED_ITS ---
HPI - General Adult General Chief complaint: Allergic Reaction Stated complaint: Cellulitis in mouth per pt Time Seen by Provider: 04/19/23 02:41 Source: patient Mode of arrival: ambulatory Limitations: no limitations History of Present Illness HPI narrative: 27-year-old male came in with concern of mouth infection, patient has a recent tooth extraction now he feels pain in his gum around the extracted tooth, noah diaz stated that his significant other also been having a mouth infection and she is taking an antibiotic. Patient declined any fever or chills. Related Data Previous Rx's Medication Instructions Recorded ibuprofen 600 mg tablet 600 mg PO Q6H PRN pain #60 tabs 12/25/20 cephalexin 500 mg capsule 500 mg PO Q12H 7 days #14 caps 05/04/21 doxycycline monohydrate 100 mg 100 mg PO BID 10 days #20 caps 05/04/21 capsule clindamycin HCl 300 mg capsule 300 mg PO Q6H 10 days #40 caps 03/22/22 ibuprofen 800 mg tablet 800 mg PO Q8H PRN pain #60 tabs 03/22/22 doxycycline hyclate 100 mg tablet 100 mg PO BID 7 days #14 tabs 05/04/22 cyclobenzaprine 5 mg tablet 5 mg PO BEDTIME PRN muscle spasm 03/05/23 #5 tabs ibuprofen 600 mg tablet 600 mg PO Q6H PRN pain #20 tabs 03/05/23 prednisone 20 mg tablet 40 mg PO DAILY 5 days #10 tabs 03/05/23 amoxicillin 500 mg tablet 500 mg PO BID #14 tabs 04/19/23 Allergies Allergy/AdvReac Type Severity Reaction Status Date / Time diphenhydramine Allergy Unknown UNKNOWN Verified 04/19/23 02:11 [From [facility]] Review of Systems Review of Systems: All other systems are reviewed and are negative Constitutional: Reports as per HPI and Reports no additional constitutional complaints Eyes: Reports as per HPI and Reports no additional eye complaints Reports system reviewed and no additional complaints, except as documented Cardiovascular: Reports as per HPI and Reports no additional cardiovascular complaints Respiratory: Reports as per HPI and Reports no additional respiratory complaints Gastrointestinal: Reports as per HPI and Reports no additional gastrointestinal complaints Genitourinary: Reports no additional female genitourinary complaints Musculoskeletal: Reports no additional musculoskeletal complaints Skin/Breast: Reports system reviewed and no additional complaints, except as docu Psychiatric: Reports no additional psychiatric complaints Endocrine: Reports no additional endocrine complaints Hematologic/Lymphatic: Reports no additional hematologic/lymphatic complaints Allergic/Immunologic: Reports no additional allergic/immunologic complaints Reports system reviewed and no additional complaints, except as documented and Reports Abnormal speech present [facility] Past Medical History Medical History No active medical problems Social History Social History Advance Directives: No Advance Directives Information Provided: Yes Physical Exam ED Vital Signs: Vital Signs - 24 hr 04/19/23 02:07 Temperature 98.0 F Pulse Rate 89 Respiratory Rate 20 Blood Pressure 137/88 Pulse Oximetry 98 Oxygen Delivery Method Room Air BMI result Body Mass Index 23.1 Vital signs have been reviewed as appeared to be correct. Blood pressure normal. Heart rate normal. Respiration rate normal. Temperature normal. Oxygen saturation normal. Appearance: Alert. Oriented X3. No acute distress. Mouth: Gum tenderness and swelling around the 2nd molar tooth that is recently extracted, no fluctuation, no abscess. Head: Normal external exam. Normocephalic. Atraumatic. No Harmon signs noted. No raccoon eyes noted Eyes: PERRLA. EOMI. Conjunctiva and sclera normal. Eyelids normal. ENT: TM's Normal. Pharynx normal. Uvula midline. Moist mucous membranes. No trismus noted. No drooling noted. No muffled voice noted. Neck: Normal inspection. Neck supple. FROM. No adenopathy. Thyroid Normal. No meningeal signs. No neck mass noted. CVS: Normal heart rate and rhythm. Heart sound normal. No murmurs noted. Pulses normal throughout. Respiratory: No respiratory distress. Painless inspiration. Breath sounds normal. No wheezes/rales/rhonchi noted. Chest nontender. No accessory muscle usage noted or decreased air movement noted. Abdomen: Soft and nontender. Bowel sounds normal in all 4 quadrants. No distention noted. No organomegaly noted. No visible injury noted. Back: No CVA tenderness. Full range of motion noted. Skin: Skin warm and dry. Normal skin color. Normal skin turgor. No rashes/lesions/lacerations noted. Extremities: No lower extremity edema. Extremities exhibit normal range of motion. Extremities nontender. Neuro: Oriented X 3. Cranial nerve exam: II-XII are grossly intact No motor deficit. No sensory deficit. Reflexes normal. Course Course Course Narrative: Recent tooth extraction now complaining of gum pain and swelling, significant other also been treated for gingivitis. Will start the patient on amoxicillin and follow up with dentist. Medical Decision Making Differential Diagnosis Differential Diagnoses: The differential diagnosis associated with the presentation includes (Dental infection, gingivitis, dental abscess.) Admission/Observation Consideration of admission/observation: Escalation of care including admission/observation considered Discharge Plan Discharge Clinical Impression: Infection, Dental infection Patient Disposition: Home, Self-Care Instructions: Gingivitis (ED) Prescriptions: New amoxicillin 500 mg tablet 500 mg PO BID Qty: 14 0RF No Action doxycycline monohydrate 100 mg capsule 100 mg PO BID 10 Days Qty: 20 0RF cephalexin 500 mg capsule 500 mg PO Q12H 7 Days Qty: 14 0RF ibuprofen 600 mg tablet 600 mg PO Q6H PRN (Reason: pain) Qty: 60 0RF clindamycin HCl 300 mg capsule 300 mg PO Q6H 10 Days Qty: 40 0RF ibuprofen 800 mg tablet 800 mg PO Q8H PRN (Reason: pain) Qty: 60 0RF doxycycline hyclate 100 mg tablet 100 mg PO BID 7 Days Qty: 14 0RF cyclobenzaprine 5 mg tablet 5 mg PO BEDTIME PRN (Reason: muscle spasm) Qty: 5 0RF prednisone 20 mg tablet 40 mg PO DAILY 5 Days Qty: 10 0RF ibuprofen 600 mg tablet 600 mg PO Q6H PRN (Reason: pain) Qty: 20 0RF
== END 2023-04-19 03:18 | disposition home or self-care (01) ==
PROVIDERS: Emergency Provider Emergency Medicine
DX: K04.7 Periapical abscess without sinus (principal); K08.89 Other specified disorders of teeth and supporting structures; Z79.899 Other long term (current) drug therapy
CPT/HCPCS: 99284

== ENCOUNTER 2023-07-20 13:57 | Emergency (ER) | payer MEDICAID, SELFPAY ==
[2023-07-20 14:02] VITALS: BP 140/86; PULSE 72; RESP 18; TEMP 36.7; O2SAT 100; BMI 23.5
--- NOTE | 2023-07-20 14:04 | ED_ITS ---
HPI - Dental/Oral General Chief complaint: Dental/Oral Stated complaint: mouth swelling History of Present Illness HPI Narrative: Patient complains of worsening pain and swelling in broken tooth on the left lower side of his mouth, he has a dentist appointment in 2 days No fever no rash no facial swelling Related Data Previous Rx's Medication Instructions Recorded ibuprofen 600 mg tablet 600 mg PO Q6H PRN pain #60 tabs 12/25/20 cephalexin 500 mg capsule 500 mg PO Q12H 7 days #14 caps 05/04/21 doxycycline monohydrate 100 mg 100 mg PO BID 10 days #20 caps 05/04/21 capsule clindamycin HCl 300 mg capsule 300 mg PO Q6H 10 days #40 caps 03/22/22 ibuprofen 800 mg tablet 800 mg PO Q8H PRN pain #60 tabs 03/22/22 doxycycline hyclate 100 mg tablet 100 mg PO BID 7 days #14 tabs 05/04/22 cyclobenzaprine 5 mg tablet 5 mg PO BEDTIME PRN muscle spasm 03/05/23 #5 tabs ibuprofen 600 mg tablet 600 mg PO Q6H PRN pain #20 tabs 03/05/23 prednisone 20 mg tablet 40 mg (2 x 20 mg) PO DAILY 5 days 03/05/23 #10 tabs amoxicillin 500 mg tablet 500 mg PO BID #14 tabs 04/19/23 amoxicillin 875 mg-potassium 1 tab PO BID #14 tabs 07/20/23 clavulanate 125 mg tablet ibuprofen 600 mg tablet 600 mg PO Q6H PRN pain #20 tabs 07/20/23 Allergies Allergy/AdvReac Type Severity Reaction Status Date / Time diphenhydramine Allergy Unknown UNKNOWN Verified 07/20/23 14:02 [From [facility]] [facility] Past Medical History Source: nursing notes reviewed Medical History No active medical problems Physical Exam Vital Signs: Vital Signs: Last Vital Signs Temp 98.0 F 07/20/23 14:02 Pulse 72 07/20/23 14:02 Resp 18 07/20/23 14:02 BP 140/86 H 07/20/23 14:02 Pulse Ox 100 07/20/23 14:02 O2 Del Method Room Air 07/20/23 14:02 BMI result Body Mass Index 23.5 General appearance no distress The eyes no redness or discharge The face there is no redness or swelling of the face or mandible Pharynx no redness swelling or exudate Dental exam there is a broken left lower molar just barely protruding from the come there is gum swelling but no fluctuance no obvious, obsess to incise There is no trismus no drooling voice is normal no swelling under the tongue no impairment of breathing and swallowing Neck is supple Respiratory no distress Skin no rash Course Course Course Narrative: Patient with dental infection is started on Augmentin He has good follow-up with dentist on Saturday who was already discussed removing the broken tooth Discharge Plan Discharge Clinical Impression: Dental abscess Patient Disposition: Home, Self-Care Additional Instructions: Follow with dentist as scheduled on the Use antibiotic as directed Return any time for fever, difficulty breathing or swallowing worse pain and swelling any worse condition or any concerns Prescriptions: New amoxicillin-pot clavulanate 875-125 mg tablet 1 tab PO BID Qty: 14 0RF ibuprofen 600 mg tablet 600 mg PO Q6H PRN (Reason: pain) Qty: 20 0RF No Action doxycycline monohydrate 100 mg capsule 100 mg PO BID 10 Days Qty: 20 0RF cephalexin 500 mg capsule 500 mg PO Q12H 7 Days Qty: 14 0RF ibuprofen 600 mg tablet 600 mg PO Q6H PRN (Reason: pain) Qty: 60 0RF clindamycin HCl 300 mg capsule 300 mg PO Q6H 10 Days Qty: 40 0RF ibuprofen 800 mg tablet 800 mg PO Q8H PRN (Reason: pain) Qty: 60 0RF doxycycline hyclate 100 mg tablet 100 mg PO BID 7 Days Qty: 14 0RF cyclobenzaprine 5 mg tablet 5 mg PO BEDTIME PRN (Reason: muscle spasm) Qty: 5 0RF prednisone 20 mg tablet 40 mg PO DAILY 5 Days Qty: 10 0RF ibuprofen 600 mg tablet 600 mg PO Q6H PRN (Reason: pain) Qty: 20 0RF amoxicillin 500 mg tablet 500 mg PO BID Qty: 14 0RF
== END 2023-07-20 14:19 | disposition home or self-care (01) ==
PROVIDERS: Emergency Provider Emergency Medicine
DX: K04.7 Periapical abscess without sinus (principal); K08.89 Other specified disorders of teeth and supporting structures
CPT/HCPCS: 99282; 99283

== ENCOUNTER 2023-10-21 08:52 | Emergency (ER) | payer OTHER, SELFPAY ==
--- NOTE | ~2023-10-21 | XR_ITS ---
EXAMINATION: XR CHEST CLINICAL INFORMATION: Cough COMPARISON: Chest 07/19/2009 TECHNIQUE: 2 views of the chest were obtained. FINDINGS: The lungs are well expanded. Possible right middle lobe infiltrate suggestive of pneumonia. No pleural effusion. No significant abnormality is noted involving the heart, mediastinum, bony thorax or soft tissues. XR/XR chest 2V IMPRESSION: Possible right middle lobe pneumonia.
[2023-10-21 09:25] VITALS: BP 149/94; PULSE 65; RESP 18; TEMP 36.5; O2SAT 97; BMI 23.9
--- NOTE | 2023-10-21 09:48 | ED_ITS ---
HPI - URI/Sore Throat General Chief Complaint: Upper Respiratory Symptoms Stated Complaint: Sore throat/Cough Time Seen by Provider: 10/21/23 09:47 Source: patient, RN notes reviewed and old records reviewed Mode of arrival: ambulatory History of Present Illness HPI Narrative: 28-year-old male with no significant past medical history presenting to the ED complaining of nonproductive cough x2 weeks, headache, sore throat, bilateral eye tearing/crusty discharge and sore throat. Admits in the beginning had low- grade fevers of 99.0, denies fever recently, drainage from ear, vision change/loss, travel, sick contacts SOB/CP. Denies wearing glasses or contacts MD elicited complaint: rhinorrhea and nasal congestion Related Data Previous Rx's Medication Instructions Recorded ibuprofen 600 mg tablet 600 mg PO Q6H PRN pain #60 tabs 12/25/20 cephalexin 500 mg capsule 500 mg PO Q12H 7 days #14 caps 05/04/21 doxycycline monohydrate 100 mg 100 mg PO BID 10 days #20 caps 05/04/21 capsule clindamycin HCl 300 mg capsule 300 mg PO Q6H 10 days #40 caps 03/22/22 ibuprofen 800 mg tablet 800 mg PO Q8H PRN pain #60 tabs 03/22/22 doxycycline hyclate 100 mg tablet 100 mg PO BID 7 days #14 tabs 05/04/22 cyclobenzaprine 5 mg tablet 5 mg PO BEDTIME PRN muscle spasm 03/05/23 #5 tabs ibuprofen 600 mg tablet 600 mg PO Q6H PRN pain #20 tabs 03/05/23 prednisone 20 mg tablet 40 mg (2 x 20 mg) PO DAILY 5 days 03/05/23 #10 tabs amoxicillin 500 mg tablet 500 mg PO BID #14 tabs 04/19/23 amoxicillin 875 mg-potassium 1 tab PO BID #14 tabs 07/20/23 clavulanate 125 mg tablet ibuprofen 600 mg tablet 600 mg PO Q6H PRN pain #20 tabs 07/20/23 albuterol sulfate 90 mcg/actuation 2 puff inhalation Q4-6H PRN 10/21/23 aerosol inhaler shortness of breath or wheezing #6.7 grams amoxicillin 500 mg tablet 1,000 mg (2 x 500 mg) PO TID 7 10/21/23 days #42 tabs azithromycin 250 mg tablet See Rx Instructions PO .COMPLEX #6 10/21/23 tabs erythromycin 5 mg/gram (0.5 %) eye 0.5 inch ophthalmic (eye) QID 7 10/21/23 ointment days #3.5 grams Allergies Allergy/AdvReac Type Severity Reaction Status Date / Time diphenhydramine Allergy Unknown UNKNOWN Verified 10/21/23 09:28 [From [facility]] Review of Systems Review of Systems: Constitutional: +Fever, No Chills, +Fatigue, + Malaise ENT/Mouth: No Ear Pain, +Nasal Congestion, No Sinus Pain, No Hoarseness, +sore throat, +Rhinorrhea, No Swallowing Difficulty Eyes: No Eye Pain, No Swelling, No Redness, No Foreign Body, + Discharge, No Vision Changes Cardiovascular: No Chest Pain, No SOB, No Palpitations Respiratory: +Cough, No Sputum, No Wheezing, No Dyspnea Gastrointestinal: No Nausea, No Vomiting, No Diarrhea, No Constipation, No Abdominal pain Genitourinary: No Dysuria, No Urinary Frequency, No Hematuria Musculoskeletal: No joint pain, + Myalgias, No Joint Swelling Skin: No Skin Lesions, No rash Neuro: No Weakness, No Numbness, + Headache Yes all other systems are reviewed and are negative Constitutional: Constitutional: Reports as per [facility] Past Medical History Attestation statement: The following information was validated with the patient. Source: old records reviewed Medical History No active medical problems Social History Social History Smoked in Last 30 Days: No Use of substances other than those prescribed or required for medical reasons: No Advance Directives: No Physical Exam Vital Signs: Vital Signs: Last Vital Signs Temp 97.7 F 10/21/23 09:25 Pulse 65 10/21/23 09:25 Resp 18 10/21/23 09:25 BP 149/94 H 10/21/23 09:25 Pulse Ox 97 10/21/23 09:25 O2 Del Method Room Air 10/21/23 09:25 BMI result Body Mass Index 23.9 Const: General: cooperative, healthy appearing and no acute distress Orientation/consciousness: patient oriented x3 Limitations: no limitations HEENT: Head: Yes normal to inspection and Yes atraumatic Ears: hearing grossly normal bilaterally, external ears normal, TM's normal bilaterally and mastoids normal General nose exam: Normal external nose present Face and sinus: Yes normal facial exam Mouth: Normal oral and palatal mucosa present and no drooling Throat: Yes tonsils normal, Yes uvula midline, No peritonsillar mass, Yes posterior oropharynx abnormal (Mildly erythematous), No uvula laterally displaced and No uvular edema Eyes: Other: Mild bilateral conjunctival injection. No appreciable crusting/drainage. EOMs intact without entrapment or pain General: appearance normal, both eyes and all related structures Pupils: Equal, round and reactive pupils present EOM: EOMs intact bilaterally Neck: Neck: Yes normal visual inspection and Yes no meningeal signs Resp: Effort & Inspection: normal respiratory effort and no respiratory distress Auscultation: clear to auscultation bilaterally, no crackles and no wheezes Cardio: Rate: regular rate Heart sounds: S1 normal heart sound present and S2 normal heart sound present Skin: Rashes: no rashes Wounds: no wounds Neuro: General: patient oriented x3, tone normal and no meningeal signs Cranial nerves: Yes CN's II-XII intact bilaterally and Yes Equal, round and reactive pupils present Gait exam (Neuro): Normal gait present Extrem: General: Yes normal to inspection Course Course Course Narrative: 0949--XR chest 2V IMPRESSION: Possible right middle lobe pneumonia. -1043--COVID/flu and rapid strep negative Results discussed with patient including worrisome signs and symptoms and strict return precautions, and when to return to the emergency department. They verbalized understanding and feel safe for discharge at this time. Medical Decision Making Medical Decision Making [facility] Narrative: 28-year-old male with no significant past medical history presenting to the ED complaining of nonproductive cough x2 weeks, headache, sore throat, bilateral eye tearing/crusty discharge and sore throat. On exam vital signs stable, NAD, nontoxic appearing, bilateral conjunctival injection noted, lungs CTA, oropharynx with mild erythema, tonsils WNL, uvula midline, tugging complete sentences. Concern for viral illness vs bronchitis vs pneumonia vs pharyngitis vs conjunctivitis. No evidence of preseptal/septal cellulitis, acute otitis, [employer]/retropharyngeal abscess Plan: CXR, viral testing Please refer to course for remaining clinical decision making, interpretation of labs/imaging results, and discussions with consultants and/or family members. Differential Diagnosis Differential Diagnoses: The differential diagnosis associated with the presenta tion includes As above Lab Data MDM Lab Attestation statement: I reviewed the patient's lab results. Labs: Lab Results 10/21/23 Range/Units 09:45 COVID-19 ([facility]) Negative (Negative) COVID-19 Clin Com See Note Influenza Type A ([facility]) Negative (Negative) Influenza Type B ([facility]) Negative (Negative) Influenza A & B Note See Note S. pyogenes GrpA [facility] Negative (Negative) Independent Interpretation I performed an independent interpretation of an: Plain X-Ray Radiology Impression Discussion of test interpretation with radiology: I have reviewed the radiologist's reading. External Record Review External record reviewed: Inpatient record, Office record, Outpatient record, P rior outpatient labs, Prior outpatient radiology, Primary care record and Outside ED record Tests considered The following testing was considered but not selected: As above Prescription Management I considered prescription management with: Pain Medication, Antiviral and Antibi otic Discharge Plan Discharge Clinical Impression: Pneumonia, Conjunctivitis Patient Disposition: Home, Self-Care Instructions: Pneumonia (ED), Conjunctivitis (ED) Additional Instructions: You have pneumonia. Amoxicillin and azithromycin or antibiotics please take as prescribed Erythromycin eye ointment is for conjunctivitis Follow-up with yourr doctor Use albuterol inhaler as needed for shortness breath/wheezing If symptoms persist or worsen return to emergency department Prescriptions: New erythromycin 5 mg/gram (0.5 %) ointment 0.5 inch ophthalmic (eye) QID 7 Days Qty: 3.5 0RF amoxicillin 500 mg tablet 1,000 mg PO TID 7 Days Qty: 42 0RF azithromycin 250 mg tablet See Rx Instructions PO .COMPLEX Qty: 6 0RF Rx Instructions: take 500 mg today (day 1), then 250 mg for 4 days (days 2-5) albuterol sulfate 90 mcg/actuation HFA aerosol inhaler 2 puff inhalation Q4-6H PRN (Reason: shortness of breath or wheezing) Qty: 6.7 0RF No Action doxycycline monohydrate 100 mg capsule 100 mg PO BID 10 Days Qty: 20 0RF cephalexin 500 mg capsule 500 mg PO Q12H 7 Days Qty: 14 0RF ibuprofen 600 mg tablet 600 mg PO Q6H PRN (Reason: pain) Qty: 60 0RF clindamycin HCl 300 mg capsule 300 mg PO Q6H 10 Days Qty: 40 0RF ibuprofen 800 mg tablet 800 mg PO Q8H PRN (Reason: pain) Qty: 60 0RF doxycycline hyclate 100 mg tablet 100 mg PO BID 7 Days Qty: 14 0RF cyclobenzaprine 5 mg tablet 5 mg PO BEDTIME PRN (Reason: muscle spasm) Qty: 5 0RF prednisone 20 mg tablet 40 mg PO DAILY 5 Days Qty: 10 0RF ibuprofen 600 mg tablet 600 mg PO Q6H PRN (Reason: pain) Qty: 20 0RF amoxicillin 500 mg tablet 500 mg PO BID Qty: 14 0RF amoxicillin-pot clavulanate 875-125 mg tablet 1 tab PO BID Qty: 14 0RF ibuprofen 600 mg tablet 600 mg PO Q6H PRN (Reason: pain) Qty: 20 0RF Referrals: [place] [Primary Care Provider] - Stand Alone Forms: Work/School Release Interventions: ED Discharge Assessment Last Done: 10/21/23 11:22 Discharge Date/Time: 10/21/23 11:22
[2023-10-21 10:03] LABS: IDNOW Serial# 08D9AD1C; Strep A Nucleic Acid Negative (Negative)
[2023-10-21 10:07] LABS: COVID-19 Test Negative (Negative); IDNOW Serial# 9DB6401D
[2023-10-21 10:08] LABS: IDNOW Serial# 58CA691E; Influenza A Negative (Negative); Influenza B2 Negative (Negative)
--- NOTE | 2023-10-21 11:17 | PC.NURSE ---
Pt is a&ox4 coming in with cough and congestion, chills, x2 weeks.
== END 2023-10-21 11:22 | disposition home or self-care (01) ==
PROVIDERS: Emergency Provider Emergency Medicine
DX: J18.9 Pneumonia, unspecified organism (principal); H10.9 Unspecified conjunctivitis; R05.9 Cough, unspecified; Z79.899 Other long term (current) drug therapy; Z11.52 Encounter for screening for COVID-19
CPT/HCPCS: 71046; 87502; 87635; 87651; 99283

== ENCOUNTER 2023-12-13 22:37 | Emergency (ER) | payer OTHER, SELFPAY ==
[2023-12-13 22:48] VITALS: BP 132/76; PULSE 100; RESP 20; TEMP 38.3; O2SAT 95; BMI 21.8
[2023-12-13 23:12] LABS: COVID-19 Test Negative (Negative); IDNOW Serial# 08D9AD1C
[2023-12-13 23:14] LABS: IDNOW Serial# 152EDE1D; Influenza A Positive (Negative); Influenza B2 Negative (Negative)
--- NOTE | 2023-12-14 00:11 | ED_ITS ---
HPI - General Adult General Chief complaint: Upper Respiratory Symptoms Stated complaint: Flu like Symptoms Time Seen by Provider: 12/13/23 23:56 Source: patient, RN notes reviewed and old records reviewed Mode of arrival: ambulatory Limitations: no limitations History of Present Illness HPI narrative: 28-year-old male presents for evaluation of flu-like symptoms. Patient reports fevers, cough, body aches and nausea for the last 3 days He reports his daughter was sick with similar symptoms recently He denies any chest pain or recent travel Related Data Previous Rx's Medication Instructions Recorded ibuprofen 600 mg tablet 600 mg PO Q6H PRN pain #60 tabs 12/25/20 cephalexin 500 mg capsule 500 mg PO Q12H 7 days #14 caps 05/04/21 doxycycline monohydrate 100 mg 100 mg PO BID 10 days #20 caps 05/04/21 capsule clindamycin HCl 300 mg capsule 300 mg PO Q6H 10 days #40 caps 03/22/22 ibuprofen 800 mg tablet 800 mg PO Q8H PRN pain #60 tabs 03/22/22 doxycycline hyclate 100 mg tablet 100 mg PO BID 7 days #14 tabs 05/04/22 cyclobenzaprine 5 mg tablet 5 mg PO BEDTIME PRN muscle spasm 03/05/23 #5 tabs ibuprofen 600 mg tablet 600 mg PO Q6H PRN pain #20 tabs 03/05/23 prednisone 20 mg tablet 40 mg (2 x 20 mg) PO DAILY 5 days 03/05/23 #10 tabs amoxicillin 500 mg tablet 500 mg PO BID #14 tabs 04/19/23 amoxicillin 875 mg-potassium 1 tab PO BID #14 tabs 07/20/23 clavulanate 125 mg tablet ibuprofen 600 mg tablet 600 mg PO Q6H PRN pain #20 tabs 07/20/23 albuterol sulfate 90 mcg/actuation 2 puff inhalation Q4-6H PRN 10/21/23 aerosol inhaler shortness of breath or wheezing #6.7 grams amoxicillin 500 mg tablet 1,000 mg (2 x 500 mg) PO TID 7 10/21/23 days #42 tabs azithromycin 250 mg tablet See Rx Instructions PO .COMPLEX #6 10/21/23 tabs erythromycin 5 mg/gram (0.5 %) eye 0.5 inch ophthalmic (eye) QID 7 10/21/23 ointment days #3.5 grams ibuprofen 600 mg tablet 600 mg PO Q6H PRN fever or pain 12/14/23 #20 tabs ondansetron 4 mg disintegrating 4 mg PO Q8H PRN nausea and 12/14/23 tablet vomiting #20 tabs Allergies Allergy/AdvReac Type Severity Reaction Status Date / Time diphenhydramine AdvReac Unknown Itching Verified 12/13/23 22:48 [From [facility]] Review of Systems Constitutional: Constitutional: Reports body ache(s), Reports chills, Reports fever(s) and Reports headache(s) ENT: Reports headache(s) and Denies sore throat Cardiovascular: Cardiovascular: Denies chest pain and Denies dyspnea Respiratory: Respiratory: Reports cough and Denies dyspnea Gastrointestinal: Gastrointestinal: Denies abdominal pain, Denies diarrhea, Reports nausea and Denies vomiting Musculoskeletal: Musculoskeletal: Denies back pain Integumentary/Breasts: Skin/Breast: Denies rash Neurologic: Reports headache(s) [facility] Past Medical History Medical History No active medical problems Social History Social History Advance Directives: No Advance Directives Information Provided: No Physical Exam ED Vital Signs: Vital Signs - 24 hr 12/13/23 22:48 Temperature 100.9 F H Pulse Rate 100 Respiratory Rate 20 Blood Pressure 132/76 Pulse Oximetry 95 Oxygen Delivery Method Room Air BMI result Body Mass Index 21.8 Const General: healthy appearing, comfortable, no acute distress, alert and awake Nutritional Appearance: well nourished Orientation/consciousness: patient oriented x3 HENMT Head: Yes normocephalic and Yes atraumatic Throat: Yes posterior oropharynx normal Eyes Eyelids: Yes eyelids normal Conjunctivae: conjunctivae normal Sclerae: sclerae normal Corneas: corneas normal Pupils: Equal, round and reactive pupils present EOM: EOMs intact bilaterally Neck Neck: Yes full ROM Resp Effort & Inspection: normal respiratory effort, able to speak in complete sentences, no audible wheezes and not labored Auscultation: clear to auscultation bilaterally Cardio Rate: regular rate Rhythm: regular rhythm GI Inspection: No distended Palpation (GI): Soft to palpation, not firm, nontender, no guarding and not rigid Skin General skin exam: elasticity normal Neuro General: patient oriented x3 Cranial nerves: Yes Equal, round and reactive pupils present and Yes Bilaterally intact EOM present Cognition (Neuro): normal cognition Extrem Other: Moving all extremities well without any obvious deformities Medical Decision Making Medical Decision Making MDM Narrative: 28-year-old male presents for evaluation of flu-like symptoms. He is febrile to 100.9, but otherwise well-appearing with stable vital signs. He tested positive for influenza. Unfortunately he is outside the window for Tamiflu treatment. We will treat him symptomatically and he will be stable for discharge. Differential Diagnosis Differential Diagnoses: The differential diagnosis associated with the presentation includes Influenza Viral syndrome Upper respiratory infection COVID-19 Pneumonia Lab Data Positive for influenza A Labs: Lab Results 12/13/23 Range/Units 22:54 COVID-19 ([facility]) Negative (Negative) COVID-19 Clin Com See Note Influenza Type A ([facility]) Positive A (Negative) Influenza Type B ([facility]) Negative (Negative) Influenza A & B Note See Note Discharge Plan Discharge Clinical Impression: Influenza Patient Disposition: Home, Self-Care Instructions: Influenza (ED) Additional Instructions: Use ibuprofen/Tylenol as needed for your fevers and body aches You may use Zofran as needed for any nausea or vomiting Drink lots of fluids, small sips at a time Follow-up with your primary doctor Prescriptions: New ibuprofen 600 mg tablet 600 mg PO Q6H PRN (Reason: fever or pain) Qty: 20 0RF ondansetron 4 mg tablet,disintegrating 4 mg PO Q8H PRN (Reason: nausea and vomiting) Qty: 20 0RF No Action doxycycline monohydrate 100 mg capsule 100 mg PO BID 10 Days Qty: 20 0RF cephalexin 500 mg capsule 500 mg PO Q12H 7 Days Qty: 14 0RF ibuprofen 600 mg tablet 600 mg PO Q6H PRN (Reason: pain) Qty: 60 0RF clindamycin HCl 300 mg capsule 300 mg PO Q6H 10 Days Qty: 40 0RF ibuprofen 800 mg tablet 800 mg PO Q8H PRN (Reason: pain) Qty: 60 0RF doxycycline hyclate 100 mg tablet 100 mg PO BID 7 Days Qty: 14 0RF cyclobenzaprine 5 mg tablet 5 mg PO BEDTIME PRN (Reason: muscle spasm) Qty: 5 0RF prednisone 20 mg tablet 40 mg PO DAILY 5 Days Qty: 10 0RF ibuprofen 600 mg tablet 600 mg PO Q6H PRN (Reason: pain) Qty: 20 0RF amoxicillin 500 mg tablet 500 mg PO BID Qty: 14 0RF amoxicillin-pot clavulanate 875-125 mg tablet 1 tab PO BID Qty: 14 0RF ibuprofen 600 mg tablet 600 mg PO Q6H PRN (Reason: pain) Qty: 20 0RF erythromycin 5 mg/gram (0.5 %) ointment 0.5 inch ophthalmic (eye) QID 7 Days Qty: 3.5 0RF amoxicillin 500 mg tablet 1,000 mg PO TID 7 Days Qty: 42 0RF azithromycin 250 mg tablet See Rx Instructions PO .COMPLEX Qty: 6 0RF Rx Instructions: take 500 mg today (day 1), then 250 mg for 4 days (days 2-5) albuterol sulfate 90 mcg/actuation HFA aerosol inhaler 2 puff inhalation Q4-6H PRN (Reason: shortness of breath or wheezing) Qty: 6.7 0RF
[2023-12-14] MEDS: Ondansetron ODT 4 MG TAB.RAPDIS TRANSLINGU (00:17)
[2023-12-14] MEDS: Ibuprofen 600 MG TABLET PO (00:17)
[2023-12-14 00:30] VITALS: BP 125/89; PULSE 96; RESP 15; TEMP 37.2; O2SAT 99
== END 2023-12-14 00:31 | disposition home or self-care (01) ==
PROVIDERS: Emergency Provider Internal Medicine
DX: J10.1 Influenza due to other identified influenza virus with other respiratory manifestations (principal); R05.9 Cough, unspecified; R50.9 Fever, unspecified; R11.0 Nausea
CPT/HCPCS: 87502; 87635; 99283; 99284

== ENCOUNTER 2024-05-25 15:29 | Emergency (ER) | payer OTHER, SELFPAY ==
--- NOTE | ~2024-05-25 | CT_ITS ---
EXAMINATION: CT ABDOMEN AND PELVIS WITHOUT CONTRAST CLINICAL INFORMATION: Left flank pain. COMPARISON: Chest x-ray dated 10/21/2023. TECHNIQUE: Multidetector volumetric imaging was performed from the superior aspect of the liver through the pubic symphysis. Sagittal and coronal reformatted images were obtained on the technologist workstation. This CT examination was performed using dose optimization techniques as appropriate, variously including the following: *Automated exposure control *Adjustment of mA and/or kV according to patient size (this includes techniques or standardized protocols for targeted exams where dose is matched to indication/reason for exam; i.e. extremities or head) *Use of iterative reconstruction technique DLP: 379 mGy-cm. FINDINGS: LUNG BASES: The visualized lung bases are unremarkable. LIVER, GALLBLADDER, AND BILIARY TREE: The liver is normal in size and shape. There is heterogeneous attenuation with patchy areas of low density seen predominantly in the right lobe, consistent with fatty infiltration.. There is a tiny 0.3 cm low-attenuation mass in the periphery of hepatic segment 4A (series 3, image 8), too small to characterize, but likely a tiny cyst. There is a 1 x 0.7 cm low-attenuation mass in the anterior periphery of segment IVb adjacent to the falciform ligament, incompletely characterized, but most likely related to an area of focal fatty infiltration. No biliary ductal dilatation is present. The gallbladder is unremarkable with no evidence of radiopaque gallstones, gallbladder wall thickening, or obvious pericholecystic inflammatory changes. PANCREAS: Unremarkable on noncontrast imaging. SPLEEN: Unremarkable. ADRENAL GLANDS: Unremarkable on noncontrast imaging. KIDNEYS AND URETERS: The kidneys are normal in size, shape, and attenuation. No hydronephrosis, hydroureter, or calculi seen. No perinephric stranding. BLADDER: Decompressed and suboptimally assessed, but grossly unremarkable. PELVIC VISCERA: Unremarkable. GASTROINTESTINAL TRACT: The small and large bowel are unremarkable. The appendix is unremarkable. ABDOMINAL WALL: No significant hernia is appreciated. LYMPH NODES, VASCULAR: Unremarkable. OSSEOUS STRUCTURES: Unremarkable. CT/CT abdomen pelvis wo IV con IMPRESSION: 1. No acute findings seen to explain the patient's left flank pain. Specifically, no evidence of nephrolithiasis or obstructive uropathy. 2. Heterogeneous attenuation of the liver, consistent with patchy hepatic steatosis. 3. Tiny 0.3 cm low-attenuation mass in hepatic segment 4A, too small to characterize, but likely a tiny cyst. 4. Small 1 x 0.7 cm low-attenuation mass in hepatic segment IVb, incompletely characterized, but most likely related to an area of focal fatty infiltration. Electronically signed by: Jacki Reaves MD 05/25/2024 04:55 PM EDT
--- NOTE | ~2024-05-25 | US_ITS ---
EXAMINATION: US SCROTUM CLINICAL INFORMATION: Left testicular pain. COMPARISON: None available. TECHNIQUE: A sonogram of the scrotum was performed assessing melo-scale appearance and color Doppler flow. Spectral Doppler analysis of the arterial and venous flow were performed in the testes bilaterally. FINDINGS: RIGHT: Right testicle measures 4.0 x 2.1 x 3.0 cm, volume 13.6 mL. No focal testicular parenchymal lesions are visualized. Spectral Doppler analysis of the arterial and venous flow is normal in the right testis. Right epididymal head is normal in size. No right hydrocele or varicocele is seen. Right epididymal Doppler flow is . LEFT: Left testicle measures 6.6 x 2.2 x 2.7 cm, volume 11.0 mL. No focal testicular parenchymal lesions are visualized. Spectral Doppler analysis of the arterial and venous flow is normal in the left testis. Left epididymal head is normal in size. No left hydrocele or varicocele is seen. Left epididymal Doppler flow is normal. US/US scrotum doppler IMPRESSION: Unremarkable scrotal ultrasound. Electronically signed by: Fuad Calvillo MD 05/25/2024 10:35 PM EDT
--- NOTE | ~2024-05-25 | US_ITS ---
EXAMINATION: US SCROTUM CLINICAL INFORMATION: Left testicular pain. COMPARISON: None available. TECHNIQUE: A sonogram of the scrotum was performed assessing melo-scale appearance and color Doppler flow. Spectral Doppler analysis of the arterial and venous flow were performed in the testes bilaterally. FINDINGS: RIGHT: Right testicle measures 4.0 x 2.1 x 3.0 cm, volume 13.6 mL. No focal testicular parenchymal lesions are visualized. Spectral Doppler analysis of the arterial and venous flow is normal in the right testis. Right epididymal head is normal in size. No right hydrocele or varicocele is seen. Right epididymal Doppler flow is . LEFT: Left testicle measures 6.6 x 2.2 x 2.7 cm, volume 11.0 mL. No focal testicular parenchymal lesions are visualized. Spectral Doppler analysis of the arterial and venous flow is normal in the left testis. Left epididymal head is normal in size. No left hydrocele or varicocele is seen. Left epididymal Doppler flow is normal. US/US scrotum IMPRESSION: Unremarkable scrotal ultrasound. Electronically signed by: Fuad Calvillo MD 05/25/2024 10:35 PM EDT
[2024-05-25 15:34] VITALS: BP 139/89; PULSE 67; RESP 14; TEMP 36.6; O2SAT 100; BMI 22.6
--- NOTE | 2024-05-25 15:36 | ED.GENADULT ---
HPI - General Adult General Chief complaint: Urogenital-Male Stated complaint: groin, back pain Time Seen by Provider: 05/25/24 21:19 Source: patient Mode of arrival: ambulatory Limitations: no limitations History of Present Illness HPI narrative: Patient is a 28-year-old male who presents emergency department for evaluation. He reports at 14:00 he awoke with left-sided flank pain today, he felt the pain intermittently radiating into his left testicle. He denied any fall precipitating trauma. He denies dysuria, urinary frequency/urgency/hesitancy, or hematuria but he does state that he feels like he was having a difficult time emptying his bladder earlier today. He denies any concern for sexually transmitted infections, no penile discharge. Denies any scrotal pain redness or swelling. Denies any history of similar pain in the past. No associated nausea vomiting abdominal pain fevers or chills. Related Data Previous Rx's ?Medication ?Instructions ?Recorded ibuprofen 600 mg tablet 600 mg PO Q6H PRN pain #60 tabs 12/25/20 cephalexin 500 mg capsule 500 mg PO Q12H 7 days #14 caps 05/04/21 doxycycline monohydrate 100 mg 100 mg PO BID 10 days #20 caps 05/04/21 capsule clindamycin HCl 300 mg capsule 300 mg PO Q6H 10 days #40 caps 03/22/22 ibuprofen 800 mg tablet 800 mg PO Q8H PRN pain #60 tabs 03/22/22 doxycycline hyclate 100 mg tablet 100 mg PO BID 7 days #14 tabs 05/04/22 cyclobenzaprine 5 mg tablet 5 mg PO BEDTIME PRN muscle spasm 03/05/23 #5 tabs ibuprofen 600 mg tablet 600 mg PO Q6H PRN pain #20 tabs 03/05/23 prednisone 20 mg tablet 40 mg (2 x 20 mg) PO DAILY 5 days 03/05/23 #10 tabs amoxicillin 500 mg tablet 500 mg PO BID #14 tabs 04/19/23 amoxicillin 875 mg-potassium 1 tab PO BID #14 tabs 07/20/23 clavulanate 125 mg tablet ibuprofen 600 mg tablet 600 mg PO Q6H PRN pain #20 tabs 07/20/23 albuterol sulfate 90 mcg/actuation 2 puff inhalation Q4-6H PRN 10/21/23 aerosol inhaler shortness of breath or wheezing #6.7 grams amoxicillin 500 mg tablet 1,000 mg (2 x 500 mg) PO TID 7 10/21/23 days #42 tabs azithromycin 250 mg tablet See Rx Instructions PO .COMPLEX #6 10/21/23 tabs erythromycin 5 mg/gram (0.5 %) eye 0.5 inch ophthalmic (eye) QID 7 10/21/23 ointment days #3.5 grams ibuprofen 600 mg tablet 600 mg PO Q6H PRN fever or pain 12/14/23 #20 tabs ondansetron 4 mg disintegrating 4 mg PO Q8H PRN nausea and 12/14/23 tablet vomiting #20 tabs Allergies Allergy/AdvReac Type Severity Reaction Status Date / Time diphenhydramine AdvReac Unknown Itching Verified 05/25/24 15:37 [From [facility]] Review of Systems Review of Systems: Yes all other systems are reviewed and are negative PMFSH Past Medical History Attestation statement: The following information was validated with the patient. Source: old records reviewed Medical History No active medical problems Social History Social History Smoked in Last 30 Days: No Use of substances other than those prescribed or required for medical reasons: No Advance Directives: No Advance Directives Information Provided: No Do you have a plan to hurt others: No Plan Physical Exam ED Vital Signs: Vital Signs - 24 hr 05/25/24 15:34 05/25/24 21:24 Temperature 97.9 F 97.9 F Pulse Rate 67 52 Respiratory Rate 14 15 Blood Pressure 139/89 115/75 Pulse Oximetry 100 100 Oxygen Delivery Method Room Air Room Air BMI result Body Mass Index 22.6 Appearance: Alert.?Oriented to person, place and time. No acute distress.?Normal affect.? Neck: Normal inspection.? Neck supple.?? CVS: Heart sounds normal. Normal heart rate and rhythm.? Pulses normal.?? Respiratory: No respiratory distress.? Lung sounds clear to auscultation bilaterally?? Abdomen: Soft and non-tender. Normoactive bowel sounds. Left CVAT : Forearm with jailer/training officer, ED RN. No scrotal swelling erythema or warmth. Negative phren sign. Normal cremasteric reflex. Skin: Skin warm and dry.? Normal skin color.? Extremities: No lower extremity edema.? Neuro: Moves all extremities spontaneously. Sensation intact bilaterally. Ambulates with normal steady gait. Course Course Course Narrative: This is an RME: Additional HPI, ROS, PE not included below will be deferred to primary provider. RME assessment and note performed by: Melissa Spangler PA-C This is a 29-sdol-chf-male who presents emergency department with complaints of left-sided flank pain that radiates into his left testicle. He states that he has a soreness sensation in his left testicle however the pain is more primarily in his left flank. Also endorsing that he is unable to fully empty his bladder. Plan: Labs, UA CT abdomen and pelvis to rule out obstructive uropathy. Medical Decision Making Medical Decision Making MDM Narrative: Patient is a 28-year-old male who presents emergency department for evaluation of left flank pain and left testicular pain as per HPI. He does appear mildly uncomfortable at the time of my evaluation, has some mild tenderness to the left flank. Scrotal examination is unremarkable, negative friend sign, normal cremasteric reflex. Abdominal examination is benign. No signs of systemic toxicity. CT obtained from the waiting room is without evidence of nephrolithiasis, hydronephrosis or obstructive uropathy, given the presence of microscopic hematuria and his reported symptoms that is possible that he may have already passed a stone. There is no sign of infection in the urine. He denies concern for sexually transmitted infection, testing has been sent for chlamydia and gonorrhea, declines prophylactic treatment at this time. Scrotal ultrasound was obtained in his without abnormality, notably no evidence of torsion. We discussed conservative treatment including increasing fluid intake, use of NSAID, and discussed worrisome signs and symptoms that would warrant re-evaluation in the emergency department. All questions were answered. Stable for discharge. Differential Diagnosis Differential Diagnoses: The differential diagnosis associated with the presentation includes (See narrative above) Admission/Observation Consideration of admission/observation: Escalation of care including admission/observation considered (See narrative above) Lab Data MDM Lab Attestation statement: I reviewed the patient's lab results. (See narrative above) 05/25/24 16:32 05/25/24 16:32 Labs: Lab Results 05/25/24 Range/Units 16:32 WBC 4.2 L (4.8-10.8) X10*3/uL RBC 5.37 (4.60-5.80) X10*6/uL Hgb 14.7 (14.0-18.0) g/dl Hct 46.9 (42.0-52.0) % MCV 87.3 (80.0-98.0) fL MCH 27.4 (27.0-33.0) pg MCHC 31.3 (31.0-36.0) g/dl RDW 13.9 (11.0-16.0) % Plt Count 303 (160-400) X10*3/uL MPV 10.3 (9.4-12.4) fL Immature Gran % (Auto) 0.0 (0.0-0.4) % Neut % (Auto) 56.6 (45-73) % Lymph % (Auto) 30.4 (20-40) % Mcintosh % (Auto) 10.4 (2-11) % Eos % (Auto) 2.1 (0-4) % Baso % (Auto) 0.5 (0-2) % Lymph # (Auto) 1.3 (1.2-4.9) X10*3/uL Mcintosh # (Auto) 0.4 (0.1-1.2) X10*3/uL Eos # (Auto) 0.1 (0.0-0.4) X10*3/uL Baso # (Auto) 0.0 (0.0-0.2) X10*3/uL Abs Immat Gran (auto) 0.00 (0.00-0.03) X10*3/uL Absolute Neuts (auto) 2.4 (2.0-8.3) x10*3/uL Absolute Nucleated RBC 0.000 (0.0-0.012) X10*3/uL Nucleated RBC % (auto) 0.0 (0.0-0.2) /100WBC Sodium 143 (135-145) mmol/L Potassium 4.4 (3.3-5.1) mmol/L Chloride 107 (96-108) mmol/L Carbon Dioxide 26 (22-29) mmol/L Anion Gap 14 (12-20) BUN 7 L (9-16) mg/dL Creatinine 0.98 (0.5-1.4) mg/dL Estim Creat Clear Calc 101.6 Estimated GFR > 60 Random Glucose 101 (60-115) mg/dL Calcium 9.5 (8.4-10.2) mg/dL Total Bilirubin 0.3 (0.0-1.0) mg/dL Direct Bilirubin 0.1 (0.0-0.5) mg/dL AST 27 (5-37) U/L ALT 29 (0-40) U/L Alkaline Phosphatase 106 (39-117) U/L Total Protein 8.1 H (6.5-8.0) g/dL Albumin 4.5 (3.5-5.0) g/dL Urine Color Dark Yellow Urine Appearance Clear Urine pH 6.0 (5.0-9.0) Ur Specific [place] >= 1.030 H (1.005-1.025) Urine Protein 30 (1+) H (Neg-Trace) mg/dL Urine Glucose (UA) Negative (Negative) mg/dL Urine Ketones Trace (Negative) mg/dL Urine Blood Large (3+) H (Negative) Urine Nitrite Negative (Negative) Ur Leukocyte Esterase Trace H (Negative) Urine RBC >20 H (0-2) /HPF Urine WBC 0-5 (0-5) /HPF Ur Squamous Epith Cells 0-2 (0-2) /HPF Urine Bacteria None Seen (None Seen) Hyaline Casts 0-2 (0-2) /LPF Independent Interpretation I performed an independent interpretation of an: CT Scan (No nephrolithiasis or hydronephrosis) Radiology Impression Discussion of test interpretation with radiology: I have reviewed the radiologist's reading. Radiologist Impression: CT/CT abdomen pelvis wo IV con IMPRESSION: 1. No acute findings seen to explain the patient's left flank pain. Specifically, no evidence of nephrolithiasis or obstructive uropathy. 2. Heterogeneous attenuation of the liver, consistent with patchy hepatic steatosis. 3. Tiny 0.3 cm low-attenuation mass in hepatic segment 4A, too small to characterize, but likely a tiny cyst. 4. Small 1 x 0.7 cm low-attenuation mass in hepatic segment IVb, incompletely characterized, but most likely related to an area of focal fatty infiltration. US/US scrotum doppler IMPRESSION: Unremarkable scrotal ultrasound. External Record Review External record reviewed: Outpatient record Prescription Management I considered prescription management with: Pain Medication Discharge Plan Discharge Clinical Impression: Acute left flank pain Patient Disposition: Home, Self-Care Instructions: Flank Pain (ED) Additional Instructions: As discussed, but based on your history and physical examination it is possible that you may have passed a kidney stone that was resulting in your symptoms. There was no evidence on CT scan of a kidney stone at this time. The ultrasound of your scrotum was normal. You can take ibuprofen 200 mg, 3 tablets (600mg) every 6-8 hours as needed for pain, in addition to Tylenol 500 mg, 2 tablets (1,000mg) every 4-6 hours as needed for pain, but not to exceed 3 doses daily (3,000mg).? Please follow-up with your primary care doctor within the next 3 days. Return to emergency department any new or worsening symptoms or concerns. Prescriptions: No Action doxycycline monohydrate 100 mg capsule 100 mg PO BID 10 Days Qty: 20 0RF cephalexin 500 mg capsule 500 mg PO Q12H 7 Days Qty: 14 0RF ibuprofen 600 mg tablet 600 mg PO Q6H PRN (Reason: pain) Qty: 60 0RF clindamycin HCl 300 mg capsule 300 mg PO Q6H 10 Days Qty: 40 0RF ibuprofen 800 mg tablet 800 mg PO Q8H PRN (Reason: pain) Qty: 60 0RF doxycycline hyclate 100 mg tablet 100 mg PO BID 7 Days Qty: 14 0RF cyclobenzaprine 5 mg tablet 5 mg PO BEDTIME PRN (Reason: muscle spasm) Qty: 5 0RF prednisone 20 mg tablet 40 mg PO DAILY 5 Days Qty: 10 0RF ibuprofen 600 mg tablet 600 mg PO Q6H PRN (Reason: pain) Qty: 20 0RF amoxicillin 500 mg tablet 500 mg PO BID Qty: 14 0RF amoxicillin-pot clavulanate 875-125 mg tablet 1 tab PO BID Qty: 14 0RF ibuprofen 600 mg tablet 600 mg PO Q6H PRN (Reason: pain) Qty: 20 0RF erythromycin 5 mg/gram (0.5 %) ointment 0.5 inch ophthalmic (eye) QID 7 Days Qty: 3.5 0RF amoxicillin 500 mg tablet 1,000 mg PO TID 7 Days Qty: 42 0RF azithromycin 250 mg tablet See Rx Instructions PO .COMPLEX Qty: 6 0RF Rx Instructions: take 500 mg today (day 1), then 250 mg for 4 days (days 2-5) albuterol sulfate 90 mcg/actuation HFA aerosol inhaler 2 puff inhalation Q4-6H PRN (Reason: shortness of breath or wheezing) Qty: 6.7 0RF ibuprofen 600 mg tablet 600 mg PO Q6H PRN (Reason: fever or pain) Qty: 20 0RF ondansetron 4 mg tablet,disintegrating 4 mg PO Q8H PRN (Reason: nausea and vomiting) Qty: 20 0RF Referrals: [facility] [Primary Care Provider] - Print Language: Armenian
[2024-05-25 16:37] LABS: MANUAL DIFF FLAG NO
[2024-05-25 16:40] LABS: Basophils Percent Auto 0.5 % (0-2); Eosinophils Absolute Auto 0.1 X10*3/uL (0.0-0.4); Eosinophils Percent Auto 2.1 % (0-4); Hematocrit 46.9 % (42.0-52.0); Hemoglobin 14.7 g/dl (14.0-18.0); Lymphocytes Absolute Auto 1.3 X10*3/uL (1.2-4.9); Lymphocytes Percent Auto 30.4 % (20-40); Mean Corpuscular HGB Conc 31.3 g/dl (31.0-36.0); Mean Corpuscular Hemoglobin 27.4 pg (27.0-33.0); Mean Corpuscular Volume 87.3 fL (80.0-98.0); Mean Platelet Volume 10.3 fL (9.4-12.4); Monocytes Absolute Auto 0.4 X10*3/uL (0.1-1.2); Monocytes Percent Auto 10.4 % (2-11); Neutrophils Absolute Auto 2.4 x10*3/uL (2.0-8.3); Neutrophils Percent Auto 56.6 % (45-73); Platelet Count 303 X10*3/uL (160-400); Red Blood Count 5.37 X10*6/uL (4.60-5.80); Red Cell Distribution Width 13.9 % (11.0-16.0); White Blood Count 4.2 X10*3/uL (4.8-10.8)
[2024-05-25 16:44] LABS: Appearance Urine Clear; Color Urine Dark Yellow; Glucose Urine UA Negative (Negative); Leukocyte Esterase Urine Trace (Negative); Nitrite Urine Negative (Negative); Specific Gravity - Urine >= 1.030 (1.005-1.025); UMIC TRIGGER UACC YES; Urine Blood Large (3+) (Negative); Urine Ketones Trace mg/dL (Negative); Urine Protein 30 (1+) mg/dL (Neg-Trace)
[2024-05-25 16:48] LABS: Bacteria Urine None Seen (None Seen); Hyaline Casts Urine 0-2 /LPF (0-2); RBC Urine >20 /HPF (0-2); Squamous Epithelial Cell Urine 0-2 /HPF (0-2); WBC Urine 0-5 /HPF (0-5)
[2024-05-25 16:59] LABS: Alanine Aminotransferase 29 U/L (0-40); Albumin Level 4.5 g/dL (3.5-5.0); Alkaline Phosphatase 106 U/L (39-117); Anion Gap 14 (12-20); Aspartate Amino Transferase 27 U/L (5-37); Bilirubin Direct 0.1 mg/dL (0.0-0.5); Bilirubin Total 0.3 mg/dL (0.0-1.0); Blood Urea Nitrogen 7 mg/dL (9-16); Calcium 9.5 mg/dL (8.4-10.2); Carbon Dioxide 26 mmol/L (22-29); Chloride 107 mmol/L (96-108); Creatinine Clr Calc Pharmacy 101.6; Estimated Glomerular Filt Rate > 60; Glucose Random 101 mg/dL (60-115); Potassium 4.4 mmol/L (3.3-5.1); Sodium 143 mmol/L (135-145); Total Protein 8.1 g/dL (6.5-8.0)
[2024-05-25 21:24] VITALS: BP 115/75; PULSE 52; RESP 15; TEMP 36.6; O2SAT 100
--- NOTE | 2024-05-25 21:59 | PC.NURSE ---
Pt brought to room 1 from waiting room, assumed care of pt at this time. Endorsing left testicle pain radiating into flank, difficulty urinating, painful urination. Urine resulted, PA to bedside for primary eval. US to bedside at this time. Awaiting additional urine sample and bladder scan, pt aware of plan of care.
--- NOTE | 2024-05-25 22:52 | PC.NURSE ---
PVR 0, PA notified.
[2024-05-25 23:53] VITALS: BP 118/76; PULSE 58; RESP 16; O2SAT 100
[2024-05-26 00:04] VITALS: BP 118/76; PULSE 58; RESP 16; TEMP -17.7; TEMP 0; O2SAT 100
[2024-05-26 05:38] LABS: CT PCR NOT DETECTED (Not Detect.); NG PCR NOT DETECTED (Not Detect.)
== END 2024-05-26 00:05 | disposition home or self-care (01) ==
PROVIDERS: Nurse Practitioner Family; Physician Assistant Medical; Emergency Provider Emergency Medicine
DX: R10.32 Left lower quadrant pain (principal); R10.2 Pelvic and perineal pain; N50.82 Scrotal pain; Z79.899 Other long term (current) drug therapy
CPT/HCPCS: 36415; 74176; 76870; 80048; 80076; 81001; 85025; 87491; 87591; 93975; 99284

== ENCOUNTER 2024-07-05 14:44 | Emergency (ER) | payer OTHER, SELFPAY ==
[2024-07-05 14:51] VITALS: BP 134/90; PULSE 91; RESP 16; TEMP 36; O2SAT 99; BMI 23.2
--- NOTE | 2024-07-05 14:54 | ED_ITS ---
HPI - Male Genitourinary General Chief complaint: Urogenital-Male Stated complaint: UTI Time Seen by Provider: 07/05/24 15:45 Source: patient Mode of arrival: ambulatory Limitations: no limitations History of Present Illness ED Provider: Mason Molian PA-C HPI Narrative: 28 yo male without significant PMH. Presents to ED because him and his GF have been trying to conceive over the last month or so, and it has been unsuccessful, therefore the two of them decided to go to [facility] to test themselves to see if either of them were the problem . They purchased OTC UTI tests, and he reports that his test came back positive for leukocytes which prompted him to come in. Denies symptoms at first; then shares that he has some penile tingling at the tip of his penis, did have one time white colored discharge last week, has had a problem with urgency he states since his last visit about a month ago. He clarifies that he has difficulty with urination, especially post coital urination, once he is able to express the urine it does burn. Denies difficulty with ejaculation, negative for difficulty or changes in bowel movements. Denies rectal pain or pressure, denies unsafe sex practices, denies male/male sex. Denies scrotal pain, does say scrotum is sensitive to touch. Denies N/V/D. Denies flank or suprapubic pain. Does report intermittent suprapubic pressure or fullness. Reports some irritation, possible erythema to the tip of the penis. Shares hx of STI about 2 years ago that required multiple rounds of ABX. Denies hx of IDVU, denies any falls or injuries to back or spine, denies numbness or tingling, negative for incontinence. MD Complaint: penile discharge, dysuria and possible STD exposure Onset (ago): day(s) Duration: intermittent Associated symptoms: Reports denies other symptoms Related Data Sexually active: Yes Previous Rx's ?Medication ?Instructions ?Recorded ibuprofen 600 mg tablet 600 mg PO Q6H PRN pain #60 tabs 12/25/20 cephalexin 500 mg capsule 500 mg PO Q12H 7 days #14 caps 05/04/21 doxycycline monohydrate 100 mg 100 mg PO BID 10 days #20 caps 05/04/21 capsule clindamycin HCl 300 mg capsule 300 mg PO Q6H 10 days #40 caps 03/22/22 ibuprofen 800 mg tablet 800 mg PO Q8H PRN pain #60 tabs 03/22/22 doxycycline hyclate 100 mg tablet 100 mg PO BID 7 days #14 tabs 05/04/22 cyclobenzaprine 5 mg tablet 5 mg PO BEDTIME PRN muscle spasm 03/05/23 #5 tabs ibuprofen 600 mg tablet 600 mg PO Q6H PRN pain #20 tabs 03/05/23 prednisone 20 mg tablet 40 mg (2 x 20 mg) PO DAILY 5 days 03/05/23 #10 tabs amoxicillin 500 mg tablet 500 mg PO BID #14 tabs 04/19/23 amoxicillin 875 mg-potassium 1 tab PO BID #14 tabs 07/20/23 clavulanate 125 mg tablet ibuprofen 600 mg tablet 600 mg PO Q6H PRN pain #20 tabs 07/20/23 albuterol sulfate 90 mcg/actuation 2 puff inhalation Q4-6H PRN 10/21/23 aerosol inhaler shortness of breath or wheezing #6.7 grams amoxicillin 500 mg tablet 1,000 mg (2 x 500 mg) PO TID 7 10/21/23 days #42 tabs azithromycin 250 mg tablet See Rx Instructions PO .COMPLEX #6 10/21/23 tabs erythromycin 5 mg/gram (0.5 %) eye 0.5 inch ophthalmic (eye) QID 7 10/21/23 ointment days #3.5 grams ibuprofen 600 mg tablet 600 mg PO Q6H PRN fever or pain 12/14/23 #20 tabs ondansetron 4 mg disintegrating 4 mg PO Q8H PRN nausea and 12/14/23 tablet vomiting #20 tabs Allergies Allergy/AdvReac Type Severity Reaction Status Date / Time diphenhydramine AdvReac Unknown Itching Verified 07/05/24 14:54 [From BENADRYL] Review of Systems Review of Systems: Yes all other systems are reviewed and are negative PMFSH Past Medical History Medical History No active medical problems Social History Social History Advance Directives: No Advance Directives Information Provided: No Physical Exam Vital Signs: Vital Signs: Last Vital Signs Temp 96.8 F 07/05/24 14:51 Pulse 91 07/05/24 14:51 Resp 16 07/05/24 14:51 BP 134/90 H 07/05/24 14:51 Pulse Ox 99 07/05/24 14:51 O2 Del Method Room Air 07/05/24 14:51 BMI result Body Mass Index 23.2 Appearance: Alert. Oriented X3. No acute distress. Head: normocephalic, atraumatic. Eyes: Pupils equal, round and reactive to light. ENT: Pharynx normal. No tonsillar swelling or exudate. Neck: Normal inspection. Neck supple. CVS: Normal heart rate and rhythm. Pulses normal. Respiratory: No respiratory distress. Breath sounds normal. Abdomen: Soft and nontender. +BS x4. Suprapubic tenderness on palpation L>R Skin: Skin warm and dry. Normal skin color. Normal skin turgor. No rashes. Extremities: No lower extremity edema. No joint swelling. Neuro/psych: Oriented X 3. No motor deficit. No sensory deficit. CN II-XII i ntact. Normal speech and cognition. : penis uncircumcised, with easily retractable foreskin, without lesions, discharge or excoriation. Course Course Course Narrative: This is a Rapid Medical Examination (RME) performed by Digna Sainz PA-C in triage. Full HPI, ROS, assessment and treatment plan per primary provider in the Main ED. 28 yo male here for eval of intermittent increased frequency/ urgency and dysuria x2 year. used dipstick from [facility] to test for UTI - tested positive at home. requesting STI testing. + abd soft, ND/NT, no CVAT Plan: UA, ct/ng Medical Decision Making Medical Decision Making MDM Narrative: 28 yo male without significant PMH. Presents to ED because him and his GF have been trying to conceive over the last month or so, and it has been unsuccessful, therefore the two of them decided to go to [facility] to test themselves to see if either of them were the problem . They purchased OTC UTI tests, and he reports that his test came back positive for leukocytes which prompted him to come in. Is not toxic or ill appearing, tenderness to suprapubic area on palpation more so on the left compared to the right. Negative flank or CVA tenderness. Penis uncircumcised, with easily retractable foreskin, without lesions, discharge or excoriation. UA/UC collected and without any acute processes at present time. STI samples sent to lab, declined empiric ABX treatment. Bladder scanned, negative for retention. stable for discharge home. Differential Diagnosis Differential Diagnoses: The differential diagnosis associated with the presentation includes STI, UTI, prostatitis, cystitis, renal calculi/bladder stone, bowel obstruction, CKD Lab Data MDM Lab Attestation statement: I reviewed the patient's lab results. no uti Labs: Lab Results 07/05/24 Range/Units 16:21 Urine Color Yellow Urine Appearance Clear Urine pH 5.5 (5.0-9.0) Ur Specific [place] 1.015 (1.005-1.025) Urine Protein Negative (Neg-Trace) mg/dL Urine Glucose (UA) Negative (Negative) mg/dL Urine Ketones Negative (Negative) mg/dL Urine Blood Negative (Negative) Urine Nitrite Negative (Negative) Ur Leukocyte Esterase Negative (Negative) External Record Review External record reviewed: Outpatient record and Prior outpatient labs Prescription Management I considered prescription management with: Pain Medication and Antibiotic Critical Care Time Critical Care Time Critical Care Time: No Discharge Plan Discharge Clinical Impression: Dysuria Patient Disposition: Home, Self-Care Instructions: Dysuria (ED) Additional Instructions: Your urine test was normal today. No signs of infection Testing for gonorrhea and chlamydia were sent - IF you test positive we will call you Follow up with your doctor as needed If you develop new or worsening symptoms call 911 or come back to the ER for further evaluation. Prescriptions: No Action doxycycline monohydrate 100 mg capsule 100 mg PO BID 10 Days Qty: 20 0RF cephalexin 500 mg capsule 500 mg PO Q12H 7 Days Qty: 14 0RF ibuprofen 600 mg tablet 600 mg PO Q6H PRN (Reason: pain) Qty: 60 0RF clindamycin HCl 300 mg capsule 300 mg PO Q6H 10 Days Qty: 40 0RF ibuprofen 800 mg tablet 800 mg PO Q8H PRN (Reason: pain) Qty: 60 0RF doxycycline hyclate 100 mg tablet 100 mg PO BID 7 Days Qty: 14 0RF cyclobenzaprine 5 mg tablet 5 mg PO BEDTIME PRN (Reason: muscle spasm) Qty: 5 0RF prednisone 20 mg tablet 40 mg PO DAILY 5 Days Qty: 10 0RF ibuprofen 600 mg tablet 600 mg PO Q6H PRN (Reason: pain) Qty: 20 0RF amoxicillin 500 mg tablet 500 mg PO BID Qty: 14 0RF amoxicillin-pot clavulanate 875-125 mg tablet 1 tab PO BID Qty: 14 0RF ibuprofen 600 mg tablet 600 mg PO Q6H PRN (Reason: pain) Qty: 20 0RF erythromycin 5 mg/gram (0.5 %) ointment 0.5 inch ophthalmic (eye) QID 7 Days Qty: 3.5 0RF amoxicillin 500 mg tablet 1,000 mg PO TID 7 Days Qty: 42 0RF azithromycin 250 mg tablet See Rx Instructions PO .COMPLEX Qty: 6 0RF Rx Instructions: take 500 mg today (day 1), then 250 mg for 4 days (days 2-5) albuterol sulfate 90 mcg/actuation HFA aerosol inhaler 2 puff inhalation Q4-6H PRN (Reason: shortness of breath or wheezing) Qty: 6.7 0RF ibuprofen 600 mg tablet 600 mg PO Q6H PRN (Reason: fever or pain) Qty: 20 0RF ondansetron 4 mg tablet,disintegrating 4 mg PO Q8H PRN (Reason: nausea and vomiting) Qty: 20 0RF Print Language: Upper Sorbian
[2024-07-05 16:33] LABS: Appearance Urine Clear; Color Urine Yellow; Glucose Urine UA Negative (Negative); Leukocyte Esterase Urine Negative (Negative); Nitrite Urine Negative (Negative); PH 5.5 (5.0-9.0); Specific Gravity - Urine 1.015 (1.005-1.025); Urine Blood Negative (Negative); Urine Ketones Negative (Negative); Urine Protein Negative (Neg-Trace)
[2024-07-05 17:09] VITALS: BP 134/90; PULSE 91; RESP 16; TEMP 36; O2SAT 99
[2024-07-06 01:22] LABS: CT PCR NOT DETECTED (Not Detect.); NG PCR NOT DETECTED (Not Detect.)
== END 2024-07-05 17:09 | disposition home or self-care (01) ==
PROVIDERS: Physician Assistant Medical; Emergency Provider Emergency Medicine
DX: R30.0 Dysuria (principal); R35.0 Frequency of micturition; Z20.2 Contact with and (suspected) exposure to infections with a predominantly sexual mode of transmission; Z79.899 Other long term (current) drug therapy
CPT/HCPCS: 51798; 81003; 87491; 87591; 99282; 99284

== ENCOUNTER 2024-08-23 14:01 | Emergency (ER) | payer OTHER, SELFPAY ==
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
[2024-08-23 14:13] VITALS: BP 128/85; PULSE 67; RESP 18; TEMP 36.3; O2SAT 100; BMI 23.5
[2024-08-23 18:58] VITALS: BP 128/85; PULSE 67; RESP 18; TEMP 36.3; O2SAT 100
== END 2024-08-23 18:59 | disposition home or self-care (01) ==
PROVIDERS: Emergency Provider Emergency Medicine; PCP Registered Nurse
DX: S89.92XA Unspecified injury of left lower leg, initial encounter (principal); S13.4XXA Sprain of ligaments of cervical spine, initial encounter; M54.16 Radiculopathy, lumbar region; M54.50 Low back pain, unspecified; M79.605 Pain in left leg; V43.52XA Car driver injured in collision with other type car in traffic accident, initial encounter; Y93.89 Activity, other specified; Y92.488 Other paved roadways as the place of occurrence of the external cause; Y99.8 Other external cause status
CPT/HCPCS: 72100; 73502; 99282; 99283